=== PATIENT | female | born 1980 | race Caucasian/White ===

== ENCOUNTER 2019-09-25 09:26 | Inpatient (IN) | payer OTHER ==
[2019-09-25 09:59] VITALS: BMI 21.2
--- NOTE | 2019-09-25 11:12 | HP ---
COWS - Scale Resting Pulse: 2= NM 101-120 Sweatin= Chills/Flushing Restless Observation: 1= Difficult to Sit Still Pupil Size: 0= Normal to Room Light Bone or Joint Aches: 1= Mild Discomfort Runny Nose/ Eye Tearin= Runny Nose/Eyes GI Upset > 30mins: 2= Nausea/Diarrhea Tremor Observation: 1= Tremor [place], Not Seen Yawning Observation: 0= None Anxiety or Irritability: 2=Irritable/Anxious Goose Flesh Skin: 0=Smooth Skin COWS Score: 12 CIWA Score Nausea/Vomitin Muscle Tremors: 3 Anxiety: 4-Mod. Anxious/Guarded Agitation: 1-Slight > Activity Paroxysmal Sweats: 2 Orientation: 1-Uncertain about Date Tacttile Disturbances: 2-Mild Itch/Numbness/Burn Auditory Disturbances: 0-None Visual Disturbances: 0-None Headache: 0-None Present CIWA-Ar Total Score: 15 - Admission Criteria OASAS Guidelines: Admission for Medically Managed Detox: Requires at least one of the followin. CIWA greater than 12 2. Seizures within the past 24 hours 3. Delirium tremens within the past 24 hours 4. Hallucinations within the past 24 hours 5. Acute intervention needed for co occurring medical disorder 6. Acute intervention needed for co occurring psychiatric disorder 7. Severe withdrawal that cannot be handled at a lower level of care (continued vomiting, continued diarrhea, abnormal vital signs) requiring intravenous medication and/or fluids 8. Patient presents the following: CIWA greater than 12 Admission Criteria Met: Admission criteria met Admitting History and Physical - Admission Chief Complaint: alcohol and opioid withdrawal sx History of Present Illness: Patient is a 38 yo female with hx of polysubstance abuse: alcohol, intravenous heroin, abelardo, benzio, bup is here for alcohol detox. Patient is currently on MMTP START Recovery on 40 mg dose, reports last attendance was 1.5 weeks ago, dose pending verification. LAND MANAGER reviewed patient on suboxone 12mg qd last rx 08/30, patient reports she does not take the suboxone and wishes to continue with her methadone program. PMHX: Hep C untreated, DM II on insulin therapy, HTN Psych: anxiety and bipolar on latuda Denies SI/HI or hx of suicide attempt Last detox and Rehab [facility] on month ago Others' Prescriptions Patient Name: Winifred Oliva Date: 1980 Address: [address] [place] [id number] Sex: Female Rx Written Rx Dispensed Drug Quantity Days Supply Prescriber Name 09/21/2019 09/21/2019 buprenorphine-naloxone 4-1 mg sl film 30 30 Thierno Dawson MD 09/21/2019 09/21/2019 buprenorphine-naloxone 8-2 mg sl film 60 30 Thierno Dawson MD 08/01/2019 08/01/2019 buprenorphine-naloxone 8-2 mg sl film 60 30 Yanira Robles MD Patient Name: Winifred Oliva Date: 1980 Address: [address] [place] [id number] Sex: Female Rx Written Rx Dispensed Drug Quantity Days Supply Prescriber Name 07/28/2019 07/29/2019 lorazepam 0.5 mg tablet 10 4 Gerhard Miner Lu 07/06/2019 07/06/2019 buprenorphine-naloxone 8-2 mg sl film 60 30 Yanira Robles MD 05/04/2019 05/04/2019 buprenorphine-naloxone 8-2 mg sl film 7 7 Olaf Wahl Cyn History Source: Patient Limitations to Obtaining History: No Limitations - Smoking History Smoking history: Current every day smoker Have you smoked in the past 12 months: Yes - Alcohol/Substance Use Hx Alcohol Use: Yes (reports drinking since 18 yo,1 pint of vodka daily) Admission [facility] Allergies/Adverse Reactions: Allergies Allergy/AdvReac Type Severity Reaction Status Date / Time soy Allergy Severe Difficulty Verified 09/25/19 09:47 Breathing Sulfa (Sulfonamide Allergy Severe Verified 09/25/19 09:47 Antibiotics) Exam Limitations: No Limitations - Ebola screening Have you traveled outside of the country in the last 21 days: No (N) Have you had contact with anyone from an Ebola affected area: No Do you have a fever: No - Review of Systems Constitutional: Chills, Loss of Appetite, Changes in sleep, Other (anxious) EENT: reports: Nose Congestion Respiratory: reports: No Symptoms reported Cardiac: reports: No Symptoms Reported GI: reports: Poor Appetite, Poor Fluid Intake : reports: No Symptoms Reported Musculoskeletal: reports: Back Pain, Joint Pain Integumentary: reports: Other (bilatearl hand swelling) Neuro: reports: No Symptoms reported Endocrine: reports: Increased Thirst Hematology: reports: No Symptoms Reported Psychiatric: reports: Orientated x3, Anxious Other Systems: Reviewed and Negative Patient History - Patient Medical History Hx Anemia: No Hx Asthma: No Hx Chronic Obstructive Pulmonary Disease (COPD): No Hx Cancer: No Hx Cardiac Disorders: No Hx Congestive Heart Failure: No Hx Hypertension: No Hx Hypercholesterolemia: No Hx Pacemaker: No HX Cerebrovascular Accident: No Hx Seizures: No Hx Dementia: No Hx Diabetes: Yes Hx Gastrointestinal Disorders: No Hx Liver Disease: Yes (Hep C untreated ) Hx Genitourinary Disorders: No Hx Sexually Transmitted Disorders: No Hx Renal Disease (ESRD): No Hx Thyroid Disease: No Hx Human Immunodeficiency Virus (HIV): No Hx Hepatitis C: Yes Hx Depression: Yes Hx Suicide Attempt: No Hx Bipolar Disorder: Yes (anxiety ) Hx Schizophrenia: Yes - Patient Surgical History Past Surgical History: Yes Hx Section: Yes (x2) - PPD History Previous Implant?: No Documented Results: Negative w/proof Date: 07/20/16 Results: quanttb gold ne PPD to be Administered?: Yes - Smoking Cessation Smoking history: Current every day smoker Have you smoked in the past 12 months: Yes Aproximately how many cigarettes per day: 10 Cigars Per Day: 0 Hx Chewing Tobacco Use: No Initiated information on smoking cessation: Yes 'Breaking Loose' booklet given: 09/25/19 - Substance & Tx. History Hx Alcohol Use: Yes Hx Substance Use: Yes Substance Use Type: Alcohol, Cocaine, Heroin, Opiates, Tranquilizers Hx Substance Use Treatment: Yes (Last detox and Rehab [facility] on month ago) - Substances abused Alcohol Substance route: Oral Frequency: Daily Amount used: 1 liter of vodka Age of first use: 14 Date of last use: 09/25/19 Heroin Substance route: Injection Frequency: Daily Amount used: 10-15 bags Age of first use: 15 Date of last use: 09/22/19 Crack Substance route: Smoking Frequency: Daily Amount used: $40/day Age of first use: 19 Date of last use: 09/23/19 Admission Physical Exam BHS - Vital Signs Vital Signs: Vital Signs - 24 hr 09/25/19 09:54 Temperature 98.9 F Pulse Rate 120 H Respiratory 16 Rate Blood Pressure 124/83 - Physical General Appearance: Yes: Disheveled, Thin, Sweating, Anxious HEENTM: Yes: EOMI, Hearing grossly Normal, Normal ENT Inspection, Normocephalic , Normal Voice, OKSANA, Pharynx Normal, Tm's normal, Other (poor dentition, cheilithis) Respiratory: Yes: Chest Non-Tender, Lungs Clear, Normal Breath Sounds, No Respiratory Distress, No Accessory Muscle Use Neck: Yes: Within Normal Limits Breast: Yes: Breast Exam Deferred Cardiology: Yes: Regular Rhythm, Tachycardia Abdominal: Yes: Normal Bowel Sounds, Non Tender, Flat, Soft Genitourinary: Yes: Within Normal Limits Back: Yes: Normal Inspection Musculoskeletal: Yes: full range of Motion, Gait Steady, Pelvis Stable Extremities: Yes: Normal Capillary Refill, Normal Inspection, Normal Range of Motion, Non-Tender 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: Yes: 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 NML intact, Fully Oriented, Alert, Motor Strength 5/5, Depressed Affect Integumentary: Yes: Normal Color, Warm, Track Irizarry (bilateral hands mild cellulitis present), Other Lymphatic: Yes: Within Normal Limits - Diagnostic (1) Cellulitis of hand Current Visit: Yes Status: Acute (2) Alcohol dependence with uncomplicated withdrawal Current Visit: Yes Status: Chronic (3) Anxiety Current Visit: Yes Status: Chronic (4) Insulin dependent diabetes mellitus Current Visit: Yes Status: Chronic (5) Nicotine dependence Current Visit: Yes Status: Chronic Qualifiers: Nicotine product type: cigarettes Substance use status: uncomplicated Qualified Code(s): F17.210 - Nicotine dependence, cigarettes, uncomplicated (6) Opioid dependence Current Visit: Yes Status: Chronic Qualifiers: Substance use status: uncomplicated Qualified Code(s): F11.20 - Opioid dependence, uncomplicated Comment: Patient on MMTP 40 mg dose pending verfication (7) Chronic hepatitis C virus infection Current Visit: Yes Status: Chronic Qualifiers: Hepatic coma status: without hepatic coma Qualified Code(s): B18.2 - Chronic viral hepatitis C Comment: Patient wishes to connect to the [facility] for treatment Cleared for Admission [facility] - Detox or Rehab [facility] Level of Care: Medically Managed Detox Regimen/Protocol: Ativan Breathalyzer - Breathalyzer Breathalyzer: 0.233 Urine Drug Screen - Test Device Lot number: [id number] Expiration date: 05/11/21 - Control Is test valid?: Yes - Results Drug screen NEGATIVE: No Urine drug screen results: ABELARDO-Cocaine, MTD-Methadone, BZO-Benzodiazepines, BUP- Suboxone Inpatient Rehab Admission - Rehab Decision to Admit Inpatient rehab admission?: No
[2019-09-25] MEDS ORDERED: NICOTINE POLACRILEX 2 MG GUM BUC PRN (11:15)
[2019-09-25] MEDS ORDERED: MAGNESIUM CITRATE 300 ML BOTTLE PO PRN (11:15)
[2019-09-25] MEDS ORDERED: MAGNESIUM HYDROX 2400MG/30ML ORAL SUSPENSION 30 ML CUP PO PRN (11:15)
[2019-09-25] MEDS ORDERED: BISMUTH SUBSALICYLATE 524 MG/30 ML UD PO PRN (11:15)
[2019-09-25] MEDS ORDERED: IBUPROFEN 400 MG TABLET (FP) PO PRN (11:15)
[2019-09-25] MEDS ORDERED: MAG HYDROX/AL HYDROX/SIMETH 30 ML UNIT-DOSE CUP PO PRN (11:15)
[2019-09-25] MEDS ORDERED: MENTHOL/PHENOL 1 EACH UD MM PRN (11:15)
[2019-09-25] MEDS: LORazepam 1 MG TABLET PO PRN (12:55)
[2019-09-25] MEDS: CEPHALEXIN MONOHYDRATE 250 MG CAPSULE (FP) PO SCH ×2 (12:56→17:19)
[2019-09-25] MEDS: GABAPENTIN 300 MG CAPSULE (FP) PO SCH ×2 (13:31→22:09)
--- NOTE | 2019-09-25 15:08 | PN ---
S Progress Note Note: patient prefers clonidine 0.1 mg po prn for withdrawal sx therapy instead of bid standing order discontinue clonidine0.1mg po bid replaced by clonidine 0.1mg po q12h prn
[2019-09-25] MEDS: BACITRACIN 0.9 GM PACKET TP SCH ×2 (15:33→22:28)
[2019-09-25] MEDS: LORazepam 2 MG TABLET PO SCH ×2 (17:19→22:09)
[2019-09-25] MEDS ORDERED: cloNIDine HCL 0.1 MG TABLET PO SCH (22:00)
[2019-09-25] MEDS: THIAMINE HCL 100 MG TABLET (FP) PO SCH (22:08)
[2019-09-25] MEDS: INSULIN (LEVEMIR) 100 UNITS/ML UNITS SQ SCH (22:09)
[2019-09-26] MEDS: CEPHALEXIN MONOHYDRATE 250 MG CAPSULE (FP) PO SCH ×4 (00:52→17:23)
[2019-09-26] MEDS: GABAPENTIN 300 MG CAPSULE (FP) PO SCH ×3 (06:15→22:00)
[2019-09-26] MEDS: LORazepam 2 MG TABLET PO SCH ×4 (06:15→22:01)
[2019-09-26] MEDS: cloNIDine HCL 0.1 MG TABLET PO PRN ×2 (06:18→17:23)
[2019-09-26] MEDS: METHOCARBAMOL 500 MG TABLET PO PRN ×2 (06:26→12:42)
[2019-09-26] MEDS: PRENATAL VITAMINS W/ FOLIC ACID TABLET (FP) PO SCH (10:59)
[2019-09-26 11:00] LABS: HEMATOCRIT 29.9 % (32.4-45.2); HEMOGLOBIN 9.9 GM/dL (10.7-15.3); MCH 29.4 pg (25.7-33.7); MEAN CELL VOLUME 89.2 fl (80-96); MEAN PLT VOLUME 10.1 fl (7.5-11.1); PLATELET COUNT 168 K/MM3 (134-434); RBC 3.35 M/mm3 (3.60-5.2); RDW 20.3 % (11.6-15.6); WHITE BLOOD COUNT 5.2 K/mm3 (4.0-10.0)
[2019-09-26] MEDS: LORazepam 1 MG TABLET PO PRN (11:04)
[2019-09-26] MEDS ORDERED: METHADONE HCL 10 MG TABLET PO ONE ×3 (11:16→16:15)
[2019-09-26] MEDS ORDERED: BUPRENORPHINE/NALOXONE 8 MG/2 MG FILM PACKET SL ONE (11:21)
--- NOTE | 2019-09-26 11:25 | PN ---
S CIWA - CIWA Score Nausea/Vomitin-Mild Nausea/No Vomiting Muscle Tremors: 3 Anxiety: 3 Agitation: 1-Slight > Activity Paroxysmal Sweats: 2 Orientation: 1-Uncertain about Date Tacttile Disturbances: 1-Very Mild Itch/Numbness Auditory Disturbances: 0-None Visual Disturbances: 0-None Headache: 2-Mild CIWA-Ar Total Score: 14 BHS Progress Note (SOAP) Subjective: received methadone verification that last methadone 09/13/19 of 40mg according to istop patient received 30 days of suboxone 8-2mg po bid and 4-1mg po daily on 09/21/19 begin suboxone maintenance dosage of 8-2mg sl bid + 4-1mg sl od patient reports that suboxone does not do well with her she took one or two of suboxone and sold rest of the suboxone patient states that she prefers methadone program and did well with methadone 80mg by history patient currently taking methadone 40mg due to last dose begin methadone 30mg today and 40mg thereafter continue monitoring 38 years old female admitted on 09/25/19 for alcohol withdrawal sx management treating with ativan detox regimen c/o muscle spasm roboxine prn c/o headache tylenal 650mg po x 1 c/o lower back pain lidociaine patch Objective: 09/26/19 12:10 Vital Signs Temperature 98.2 F 09/26/19 09:23 Pulse Rate 104 H 09/26/19 09:23 Respiratory Rate 18 09/26/19 09:23 Blood Pressure 86/52 L 09/26/19 09:23 O2 Sat by Pulse Oximetry (%) Laboratory Last Values WBC 5.2 K/mm3 (4.0-10.0) 09/26/19 08:15 RBC 3.35 M/mm3 (3.60-5.2) L 09/26/19 08:15 Hgb 9.9 GM/dL (10.7-15.3) L 09/26/19 08:15 Hct 29.9 % (32.4-45.2) L 09/26/19 08:15 MCV 89.2 fl (80-96) 09/26/19 08:15 MCH 29.4 pg (25.7-33.7) 09/26/19 08:15 MCHC 33.0 g/dl (32.0-36.0) 09/26/19 08:15 RDW 20.3 % (11.6-15.6) H 09/26/19 08:15 Plt Count 168 K/MM3 (134-434) D 09/26/19 08:15 MPV 10.1 fl (7.5-11.1) 09/26/19 08:15 Sodium 135 mmol/L (136-145) L 09/26/19 08:15 Potassium 3.5 mmol/L (3.5-5.1) 09/26/19 08:15 Chloride 94 mmol/L (98-107) L 09/26/19 08:15 Carbon Dioxide 28 mmol/L (21-32) 09/26/19 08:15 Anion Gap 13 MMOL/L (8-16) 09/26/19 08:15 BUN 12.6 mg/dL (7-18) 09/26/19 08:15 Creatinine 1.2 mg/dL (0.55-1.3) 09/26/19 08:15 Est GFR (CKD-EPI)AfAm 66.86 09/26/19 08:15 Est GFR (CKD-EPI)NonAf 57.69 09/26/19 08:15 POC Glucometer 124 UNITS (80-120) 09/26/19 06:17 Random Glucose 201 mg/dL (74-106) H 09/26/19 08:15 Calcium 8.5 mg/dL (8.5-10.1) 09/26/19 08:15 Total Bilirubin 0.4 mg/dL (0.2-1) 09/26/19 08:15 AST 30 U/L (15-37) 09/26/19 08:15 ALT 22 U/L (13-61) 09/26/19 08:15 Alkaline Phosphatase 152 U/L (45-117) H 09/26/19 08:15 Total Protein 7.0 g/dl (6.4-8.2) 09/26/19 08:15 Albumin 3.1 g/dl (3.4-5.0) L 09/26/19 08:15 POC Urine HCG, Qual Negative 09/25/19 10:33 lab noted low hgb and hct = anemia begin ferrous sulfate Assessment: 09/26/19 12:12 alcohol withdrawal sx methadone 30 mg today 40mg tomorrow Plan: ativan regimen
[2019-09-26] MEDS: NICOTINE 14 MG/24 HOURS TOPICAL PATCH TD SCH (11:28)
[2019-09-26 11:40] LABS: ALBUMIN 3.1 g/dl (3.4-5.0); BILIRUBIN,TOTAL 0.4 mg/dL (0.2-1); BLOOD UREA NITROGEN 12.6 mg/dL (7-18); CALCIUM 8.5 mg/dL (8.5-10.1); CREATININE 1.2 mg/dL (0.55-1.3); POTASSIUM 3.5 mmol/L (3.5-5.1)
[2019-09-26] MEDS ORDERED: ACETAMINOPHEN 325 MG TABLET (FP) PO ONE (12:08)
[2019-09-26] MEDS: BACITRACIN 15 GM TUBE TOPICAL OINTMENT TP SCH ×2 (12:38→22:00)
[2019-09-26] MEDS: FERROUS SO4 325 MG TABLET (FP) PO SCH (12:39)
[2019-09-26] MEDS: LIDOCAINE 5% TOPICAL PATCH TP SCH (12:41)
--- NOTE | 2019-09-26 13:42 | CONSULT ---
[facility] Psychiatric Consult - Data Date of interview: 09/26/19 Admission source: [facility] Identifying data: Patient is approached for psychiatric interview. Ms Oliva refused. " Come back tomorrow. I cannot talk now." Nursing staff is made aware.
[2019-09-26] MEDS ORDERED: BUPRENORPHINE/NALOXONE 8 MG/2 MG FILM PACKET SL SCH (14:00)
--- NOTE | 2019-09-26 14:54 | EKG ---
Test Reason : Blood Pressure : / mmHG Vent. Rate : 109 BPM Atrial Rate : 109 BPM P-R Int : 152 ms QRS Dur : 124 ms QT Int : 374 ms P-R-T Axes : 057 102 046 degrees QTc Int : 503 ms SINUS TACHYCARDIA POSSIBLE LEFT ATRIAL ENLARGEMENT RIGHT BUNDLE BRANCH BLOCK ABNORMAL ECG NO PREVIOUS ECGS AVAILABLE Confirmed by KARON GUERRERO MD ([id number]) on 09/26/2019 2:53:55 PM Referred By: Confirmed By:KARON GUERRERO MD
[2019-09-26] MEDS: hydrOXYzine PAMOATE 25 MG CAPSULE (FP) PO PRN ×2 (17:24→22:04)
[2019-09-26] MEDS ORDERED: BUPRENORPHINE/NALOXONE 4 MG/1 MG FILM PACKET SL SCH (22:00)
[2019-09-26] MEDS: THIAMINE HCL 100 MG TABLET (FP) PO SCH (22:02)
[2019-09-26] MEDS: LIDOCAINE PATCH REMOVAL MC SCH (22:02)
[2019-09-26] MEDS: INSULIN (LEVEMIR) 100 UNITS/ML UNITS SQ SCH (22:06)
[2019-09-27] MEDS: CEPHALEXIN MONOHYDRATE 250 MG CAPSULE (FP) PO SCH ×5 (00:15→23:48)
[2019-09-27] MEDS: LORazepam 1 MG TABLET PO PRN ×4 (01:39→19:34)
[2019-09-27] MEDS: cloNIDine HCL 0.1 MG TABLET PO PRN ×3 (01:39→19:34)
[2019-09-27] MEDS: LORazepam 1 MG TABLET PO SCH ×4 (05:47→22:03)
[2019-09-27] MEDS: METHADONE HCL 40 MG DISPERSABLE TABLET PO SCH (05:47)
[2019-09-27] MEDS: GABAPENTIN 300 MG CAPSULE (FP) PO SCH ×3 (05:47→22:03)
[2019-09-27] MEDS ORDERED: METHADONE HCL 10 MG TABLET PO SCH (06:00)
[2019-09-27] MEDS: BACITRACIN 15 GM TUBE TOPICAL OINTMENT TP SCH ×2 (10:45→22:03)
[2019-09-27] MEDS: PRENATAL VITAMINS W/ FOLIC ACID TABLET (FP) PO SCH (10:45)
[2019-09-27] MEDS: FERROUS SO4 325 MG TABLET (FP) PO SCH (10:45)
[2019-09-27] MEDS: NICOTINE 14 MG/24 HOURS TOPICAL PATCH TD SCH (10:45)
[2019-09-27] MEDS: LIDOCAINE 5% TOPICAL PATCH TP SCH (10:45)
[2019-09-27] MEDS: METHOCARBAMOL 500 MG TABLET PO PRN ×2 (10:46→22:05)
[2019-09-27] MEDS: BENZOCAINE 28 GM HEMORRHOIDAL OINTMENT PR PRN (12:30)
--- NOTE | 2019-09-27 12:33 | PN ---
[facility] CIWA - CIWA Score Nausea/Vomitin-Mild Nausea/No Vomiting Muscle Tremors: 2 Anxiety: 4-Mod. Anxious/Guarded Agitation: 3 Paroxysmal Sweats: 2 Orientation: 0-Oriented Tacttile Disturbances: 0-None Auditory Disturbances: 0-None Visual Disturbances: 0-None Headache: 0-None Present CIWA-Ar Total Score: 12 S Progress Note (SOAP) Subjective: 38 years old female admitted on 09/25/19 for alcohol withdrawal sx management treating with ativan detox regimen anxious tremor c/o long history of hemorrhoid hemorrhoid cream qid metamucil Objective: 09/27/19 12:34 Vital Signs Temperature 96.1 F L 09/27/19 09:06 Pulse Rate 120 H 09/27/19 09:06 Respiratory Rate 18 09/27/19 09:06 Blood Pressure 109/79 09/27/19 09:06 O2 Sat by Pulse Oximetry (%) Laboratory Last Values WBC 5.2 K/mm3 (4.0-10.0) 09/26/19 08:15 RBC 3.35 M/mm3 (3.60-5.2) L 09/26/19 08:15 Hgb 9.9 GM/dL (10.7-15.3) L 09/26/19 08:15 Hct 29.9 % (32.4-45.2) L 09/26/19 08:15 MCV 89.2 fl (80-96) 09/26/19 08:15 MCH 29.4 pg (25.7-33.7) 09/26/19 08:15 MCHC 33.0 g/dl (32.0-36.0) 09/26/19 08:15 RDW 20.3 % (11.6-15.6) H 09/26/19 08:15 Plt Count 168 K/MM3 (134-434) D 09/26/19 08:15 MPV 10.1 fl (7.5-11.1) 09/26/19 08:15 Sodium 135 mmol/L (136-145) L 09/26/19 08:15 Potassium 3.5 mmol/L (3.5-5.1) 09/26/19 08:15 Chloride 94 mmol/L (98-107) L 09/26/19 08:15 Carbon Dioxide 28 mmol/L (21-32) 09/26/19 08:15 Anion Gap 13 MMOL/L (8-16) 09/26/19 08:15 BUN 12.6 mg/dL (7-18) 09/26/19 08:15 Creatinine 1.2 mg/dL (0.55-1.3) 09/26/19 08:15 Est GFR (CKD-EPI)AfAm 66.86 09/26/19 08:15 Est GFR (CKD-EPI)NonAf 57.69 09/26/19 08:15 POC Glucometer 155 UNITS (80-120) 09/27/19 05:51 Random Glucose 201 mg/dL (74-106) H 09/26/19 08:15 Calcium 8.5 mg/dL (8.5-10.1) 09/26/19 08:15 Total Bilirubin 0.4 mg/dL (0.2-1) 09/26/19 08:15 AST 30 U/L (15-37) 09/26/19 08:15 ALT 22 U/L (13-61) 09/26/19 08:15 Alkaline Phosphatase 152 U/L (45-117) H 09/26/19 08:15 Total Protein 7.0 g/dl (6.4-8.2) 09/26/19 08:15 Albumin 3.1 g/dl (3.4-5.0) L 09/26/19 08:15 POC Urine HCG, Qual Negative 09/25/19 10:33 RPR Titer Nonreactive (NONREACTIVE) 09/26/19 08:15 lab noted continue ferrous sulfate low hgb and hct 09/27/19 12:35 Assessment: 09/27/19 12:36 alcohol withdrawal Plan: ativan regimen
[2019-09-27] MEDS: PSYLLIUM 5.85 GM PACKET PO SCH (15:39)
[2019-09-27] MEDS: INSULIN (LEVEMIR) 100 UNITS/ML UNITS SQ SCH (22:03)
[2019-09-27] MEDS: MELATONIN 5 MG TABLETS PO PRN (22:04)
[2019-09-27] MEDS: THIAMINE HCL 100 MG TABLET (FP) PO SCH (22:04)
[2019-09-27] MEDS: LIDOCAINE PATCH REMOVAL MC SCH (22:05)
[2019-09-27] MEDS: hydrOXYzine PAMOATE 25 MG CAPSULE (FP) PO PRN (22:07)
[2019-09-28] MEDS ORDERED: LORazepam 0.5 MG TABLET PO PRN
[2019-09-28] MEDS: MELATONIN 5 MG TABLETS PO PRN (00:39)
[2019-09-28] MEDS: CEPHALEXIN MONOHYDRATE 250 MG CAPSULE (FP) PO SCH ×3 (05:49→18:03)
[2019-09-28] MEDS: GABAPENTIN 300 MG CAPSULE (FP) PO SCH ×3 (05:49→22:29)
[2019-09-28] MEDS: METHADONE HCL 40 MG DISPERSABLE TABLET PO SCH (05:49)
[2019-09-28] MEDS: LORazepam 0.5 MG TABLET PO SCH ×4 (05:50→22:29)
[2019-09-28] MEDS: METHOCARBAMOL 500 MG TABLET PO PRN ×3 (05:52→18:08)
[2019-09-28] MEDS: cloNIDine HCL 0.1 MG TABLET PO PRN ×2 (05:59→17:38)
[2019-09-28] MEDS ORDERED: INSULIN (NOVOLOG) ASPART 100 UNITS/ML 10ML VIAL SQ ONE (07:04)
--- NOTE | 2019-09-28 07:10 | PN ---
S Progress Note Note: Patient's blood sugar level is B/S 258mg/dl. Patient is asymptomatic Vital Signs Temperature 97.8 F 09/28/19 06:47 Pulse Rate 76 09/28/19 06:47 Respiratory Rate 16 09/28/19 06:47 Blood Pressure 110/71 09/28/19 06:47 O2 Sat by Pulse Oximetry (%) Action; Insulin Novolog 4 units SQ ordered
[2019-09-28] MEDS ORDERED: INSULIN SLIDING SCALE (NOVOLOG) 1 VIAL SQ ONE (07:15)
[2019-09-28] MEDS: LIDOCAINE 5% TOPICAL PATCH TP SCH (10:04)
[2019-09-28] MEDS: PRENATAL VITAMINS W/ FOLIC ACID TABLET (FP) PO SCH (10:04)
[2019-09-28] MEDS: FERROUS SO4 325 MG TABLET (FP) PO SCH (10:04)
[2019-09-28] MEDS: NICOTINE 14 MG/24 HOURS TOPICAL PATCH TD SCH (10:05)
[2019-09-28] MEDS: BACITRACIN 15 GM TUBE TOPICAL OINTMENT TP SCH ×2 (10:05→22:30)
[2019-09-28] MEDS: BENZOCAINE 28 GM HEMORRHOIDAL OINTMENT PR PRN (10:27)
--- NOTE | 2019-09-28 13:22 | PN ---
S CIWA - CIWA Score Nausea/Vomitin-No Nausea/No Vomiting Muscle Tremors: 2 Anxiety: 2 Agitation: 2 Paroxysmal Sweats: 1-Minimal Palms Moist Orientation: 0-Oriented Tacttile Disturbances: 0-None Auditory Disturbances: 0-None Visual Disturbances: 0-None Headache: 0-None Present CIWA-Ar Total Score: 7 BHS Progress Note (SOAP) Subjective: 38 years old female admitted on 09/25/19 for alcohol withdrawal sx management treating with ativan detox regimen feeling better today patient prefers to returning to her methadone program for behavior and psychosocial therapies Objective: 09/28/19 13:23 Vital Signs Temperature 97 F L 09/28/19 09:23 Pulse Rate 91 H 09/28/19 10:41 Respiratory Rate 18 09/28/19 09:23 Blood Pressure 88/53 L 09/28/19 10:41 O2 Sat by Pulse Oximetry (%) Laboratory Last Values WBC 5.2 K/mm3 (4.0-10.0) 09/26/19 08:15 RBC 3.35 M/mm3 (3.60-5.2) L 09/26/19 08:15 Hgb 9.9 GM/dL (10.7-15.3) L 09/26/19 08:15 Hct 29.9 % (32.4-45.2) L 09/26/19 08:15 MCV 89.2 fl (80-96) 09/26/19 08:15 MCH 29.4 pg (25.7-33.7) 09/26/19 08:15 MCHC 33.0 g/dl (32.0-36.0) 09/26/19 08:15 RDW 20.3 % (11.6-15.6) H 09/26/19 08:15 Plt Count 168 K/MM3 (134-434) D 09/26/19 08:15 MPV 10.1 fl (7.5-11.1) 09/26/19 08:15 Sodium 135 mmol/L (136-145) L 09/26/19 08:15 Potassium 3.5 mmol/L (3.5-5.1) 09/26/19 08:15 Chloride 94 mmol/L (98-107) L 09/26/19 08:15 Carbon Dioxide 28 mmol/L (21-32) 09/26/19 08:15 Anion Gap 13 MMOL/L (8-16) 09/26/19 08:15 BUN 12.6 mg/dL (7-18) 09/26/19 08:15 Creatinine 1.2 mg/dL (0.55-1.3) 09/26/19 08:15 Est GFR (CKD-EPI)AfAm 66.86 09/26/19 08:15 Est GFR (CKD-EPI)NonAf 57.69 09/26/19 08:15 POC Glucometer 173 UNITS (80-120) 09/28/19 11:37 Random Glucose 201 mg/dL (74-106) H 09/26/19 08:15 Calcium 8.5 mg/dL (8.5-10.1) 09/26/19 08:15 Total Bilirubin 0.4 mg/dL (0.2-1) 09/26/19 08:15 AST 30 U/L (15-37) 09/26/19 08:15 ALT 22 U/L (13-61) 09/26/19 08:15 Alkaline Phosphatase 152 U/L (45-117) H 09/26/19 08:15 Total Protein 7.0 g/dl (6.4-8.2) 09/26/19 08:15 Albumin 3.1 g/dl (3.4-5.0) L 09/26/19 08:15 POC Urine HCG, Qual Negative 09/25/19 10:33 RPR Titer Nonreactive (NONREACTIVE) 09/26/19 08:15 lab noted long history of diabetes Assessment: 09/28/19 13:24 alcohol withdrawal discuss alcohol induced glucose imbalance Plan: ativan regimen
[2019-09-28] MEDS: hydrOXYzine PAMOATE 25 MG CAPSULE (FP) PO PRN (13:59)
[2019-09-28] MEDS: PSYLLIUM 5.85 GM PACKET PO SCH (14:06)
[2019-09-28] MEDS: THIAMINE HCL 100 MG TABLET (FP) PO SCH (22:29)
[2019-09-28] MEDS: LIDOCAINE PATCH REMOVAL MC SCH (22:30)
[2019-09-28] MEDS: INSULIN (LEVEMIR) 100 UNITS/ML UNITS SQ SCH (22:32)
[2019-09-29] MEDS: CEPHALEXIN MONOHYDRATE 250 MG CAPSULE (FP) PO SCH ×3 (00:20→11:00)
[2019-09-29] MEDS ORDERED: LORazepam 0.5 MG TABLET PO ONE (05:00)
[2019-09-29] MEDS: METHADONE HCL 40 MG DISPERSABLE TABLET PO SCH (06:01)
[2019-09-29] MEDS: GABAPENTIN 300 MG CAPSULE (FP) PO SCH (06:02)
[2019-09-29] MEDS: cloNIDine HCL 0.1 MG TABLET PO PRN (06:03)
[2019-09-29 06:44] VITALS: TEMP 98.4
[2019-09-29] MEDS: METHOCARBAMOL 500 MG TABLET PO PRN (09:18)
[2019-09-29] MEDS: hydrOXYzine PAMOATE 25 MG CAPSULE (FP) PO PRN (09:19)
[2019-09-29] MEDS: PRENATAL VITAMINS W/ FOLIC ACID TABLET (FP) PO SCH (09:19)
[2019-09-29] MEDS: FERROUS SO4 325 MG TABLET (FP) PO SCH (09:19)
[2019-09-29] MEDS: BACITRACIN 15 GM TUBE TOPICAL OINTMENT TP SCH (09:20)
[2019-09-29 09:25] VITALS: BP 83/64; PULSE 118
[2019-09-29] MEDS: NICOTINE 14 MG/24 HOURS TOPICAL PATCH TD SCH (09:25)
[2019-09-29] MEDS: LIDOCAINE 5% TOPICAL PATCH TP SCH (11:01)
--- NOTE | 2019-09-29 14:26 | DS ---
[facility] Detox Discharge Summary Admission Date: 09/25/19 Discharge Date: 09/29/19 - History Present History: Alcohol Dependence Additional Comments: 38 years old female admitted on 09/25/19 for alcohol withdrawal sx management treated with ativan detox regimen patient tolerated well alert oriented x 3 respiratory clear lung bilaterally on auscultation extremities full range of motion skin warm and dry Pertinent Past History: patient will continue following up with methadone program for behavior and psychosocial therapies transportation arranged by the counselor from detox facility to residential - Physical Exam Results Vital Signs: Vital Signs Temperature 98.4 F 09/29/19 09:24 Pulse Rate 118 H 09/29/19 09:24 Respiratory Rate 18 09/29/19 09:24 Blood Pressure 83/64 L 09/29/19 09:24 O2 Sat by Pulse Oximetry (%) Pertinent Admission Physical Exam Findings: alcohol withdrawal sx Laboratory Last Values WBC 5.2 K/mm3 (4.0-10.0) 09/26/19 08:15 RBC 3.35 M/mm3 (3.60-5.2) L 09/26/19 08:15 Hgb 9.9 GM/dL (10.7-15.3) L 09/26/19 08:15 Hct 29.9 % (32.4-45.2) L 09/26/19 08:15 MCV 89.2 fl (80-96) 09/26/19 08:15 MCH 29.4 pg (25.7-33.7) 09/26/19 08:15 MCHC 33.0 g/dl (32.0-36.0) 09/26/19 08:15 RDW 20.3 % (11.6-15.6) H 09/26/19 08:15 Plt Count 168 K/MM3 (134-434) D 09/26/19 08:15 MPV 10.1 fl (7.5-11.1) 09/26/19 08:15 Sodium 135 mmol/L (136-145) L 09/26/19 08:15 Potassium 3.5 mmol/L (3.5-5.1) 09/26/19 08:15 Chloride 94 mmol/L (98-107) L 09/26/19 08:15 Carbon Dioxide 28 mmol/L (21-32) 09/26/19 08:15 Anion Gap 13 MMOL/L (8-16) 09/26/19 08:15 BUN 12.6 mg/dL (7-18) 09/26/19 08:15 Creatinine 1.2 mg/dL (0.55-1.3) 09/26/19 08:15 Est GFR (CKD-EPI)AfAm 66.86 09/26/19 08:15 Est GFR (CKD-EPI)NonAf 57.69 09/26/19 08:15 POC Glucometer 124 UNITS (80-120) 09/29/19 06:06 Random Glucose 201 mg/dL (74-106) H 09/26/19 08:15 Calcium 8.5 mg/dL (8.5-10.1) 09/26/19 08:15 Total Bilirubin 0.4 mg/dL (0.2-1) 09/26/19 08:15 AST 30 U/L (15-37) 09/26/19 08:15 ALT 22 U/L (13-61) 09/26/19 08:15 Alkaline Phosphatase 152 U/L (45-117) H 09/26/19 08:15 Total Protein 7.0 g/dl (6.4-8.2) 09/26/19 08:15 Albumin 3.1 g/dl (3.4-5.0) L 09/26/19 08:15 POC Urine HCG, Qual Negative 09/25/19 10:33 RPR Titer Nonreactive (NONREACTIVE) 09/26/19 08:15 lab noted - Treatment Hospital Course: Detox Protocol Followed, Detoxed Safely, Responded well, Discharged Condition Good, Rehab Referral Accepted Patient has Accepted a Rehab Referral to: [facility] - Medication Discharge Medications: Ambulatory Orders Insulin Glargine,Hum.rec.anlog [Lantus (10mL VIAL) -] 10 units SQ HS 07/24/16 Buspirone HCl [Buspar -] 15 mg PO BID #60 tablet 08/14/16 Clonidine HCl 0.1 mg PO BID 09/25/19 Lurasidone HCl [Latuda] 40 mg PO DAILY 09/25/19 Cephalexin Monohydrate [Keflex -] 250 mg PO Q6HPO #7 capsule 09/29/19 Gabapentin [Neurontin -] 300 mg PO TID #14 capsule 09/29/19 - Diagnosis (1) Methadone maintenance therapy patient Status: Chronic (2) Alcohol dependence with uncomplicated withdrawal Status: Acute (3) Insulin dependent diabetes mellitus Status: Chronic (4) Nicotine dependence Status: Acute Qualifiers: Nicotine product type: cigarettes Substance use status: in withdrawal Qualified Code(s): F17.213 - Nicotine dependence, cigarettes, with withdrawal - AMA Did Patient Leave Against Medical Advice: No CIWA Score - CIWA Score Nausea/Vomitin-No Nausea/No Vomiting Muscle Tremors: 1-None Visible, but [place] Anxiety: 1-Mildly Anxious Agitation: 1-Slight > Activity Paroxysmal Sweats: No Perspiration Orientation: 0-Oriented Tacttile Disturbances: 0-None Auditory Disturbances: 0-None Visual Disturbances: 0-None Headache: 0-None Present CIWA-Ar Total Score: 3
== END 2019-09-29 11:06 | disposition home or self-care (01) | DRG 773 ==
LOC: YASAS 09:26 → Y3N 11:31
PROVIDERS: ADMIT Allergy & Immunology; ATTEND Allergy & Immunology
PROC: HZ2ZZZZ Detoxification Services for Substance Abuse Treatment (ICD-10-PCS; principal; 2019-09-25)
DX: F10.230 Alcohol dependence with withdrawal, uncomplicated (principal); F11.20 Opioid dependence, uncomplicated; F17.213 Nicotine dependence, cigarettes, with withdrawal; F41.9 Anxiety disorder, unspecified; E11.9 Type 2 diabetes mellitus without complications; K64.8 Other hemorrhoids; R00.0 Tachycardia, unspecified; L03.114 Cellulitis of left upper limb; L03.113 Cellulitis of right upper limb; B18.2 Chronic viral hepatitis C; Z79.4 Long term (current) use of insulin; Z88.2 Allergy status to sulfonamides; Z91.011 Allergy to milk products
CPT/HCPCS: 36415; 80053; 81025; 82962; 85027; 86593; 93005; 93010; J0735

== ENCOUNTER 2019-10-31 15:08 | Inpatient (IN) | payer OTHER ==
--- NOTE | 2019-10-31 15:27 | PDOC ---
History of Present Illness - General Chief Complaint: Overdose Stated Complaint: Overdose Time Seen by Provider: 10/31/19 15:19 History Source: Patient Exam Limitations: No Limitations - History of Present Illness Initial Comments: 10/31/19 23:46 38 yo F with a hx of heroin abuse and ETOH abuse presents to the emergency department s/p overdose and infection on her hands bilaterally. Per EMS, the patient had overdosed and was given 8 mg of total narcan (4 mg of IN, 4 mg of IM ) with resolution of her respiratory depression. per the patient, she has had worsening infection in her hands over the past few days. The patient endorses using numerous injection sites in the extremities. In addition, the patient used heroin today from a source that is new to her and not from her usual source. The patient had her last alcoholic drink today 10/31/19 23:53 Past History - Past Medical History Allergies/Adverse Reactions: Allergies Allergy/AdvReac Type Severity Reaction Status Date / Time soy Allergy Severe Difficulty Verified 10/31/19 16:47 Breathing Sulfa (Sulfonamide Allergy Severe Verified 10/31/19 16:47 Antibiotics) Home Medications: Ambulatory Orders Insulin Glargine,Hum.rec.anlog [Lantus (10mL VIAL) -] 10 units SQ HS 07/24/16 Buspirone HCl [Buspar -] 15 mg PO BID #60 tablet 08/14/16 Clonidine HCl 0.1 mg PO BID 09/25/19 Lurasidone HCl [Latuda] 40 mg PO DAILY 09/25/19 Cephalexin Monohydrate [Keflex -] 250 mg PO Q6HPO #7 capsule 09/29/19 Gabapentin [Neurontin -] 300 mg PO TID #14 capsule 09/29/19 Anemia: No Asthma: No Cancer: No Cardiac Disorders: No CVA: No COPD: No CHF: No Dementia: No Diabetes: Yes GI Disorders: No Disorders: No HTN: No Hypercholesterolemia: No Kidney Stones: No Liver Disease: Yes (Hep C untreated ) Seizures: No Thyroid Disease: No - Reproductive History PID: No - Psycho Social/Smoking Cessation Hx Smoking History: Current every day smoker Have you smoked in the past 12 months: Yes Number of Cigarettes Smoked Daily: 10 Cigars Per Day: 0 'Breaking Loose' booklet given: 09/25/19 Hx Alcohol Use: Yes Drug/Substance Use Hx: Yes Substance Use Type: Alcohol, Cocaine, Heroin, Opiates, Tranquilizers Hx Substance Use Treatment: Yes (Last detox and Rehab [facility] on month ago) Review of Systems - Review of Systems Able to Perform ROS?: Yes Is the patient limited Spanish proficient: No Constitutional: No: Chills, Diaphoresis, Fever, Weakness HEENTM: No: Eye Pain, Ear Pain, Nose Pain, Throat Pain, Mouth Pain Respiratory: No: Cough, Shortness of Breath, Hemoptysis Cardiac (ROS): No: Chest Pain, Lightheadedness, Palpitations, Chest Tightness ABD/GI: No: Constipated, Diarrhea, Nausea, Rectal Bleeding, Vomiting, Tarry Stools : No: Burning, Dysuria, Hematuria Musculoskeletal: No: Back Pain, Joint Pain, Neck Pain Integumentary: Yes: Erythema (hands bilaterally), Lesions (multiple track lozano throughout the UE b/l). No: Bruising 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: No: Headache, Numbness, Tingling, Tremors Psychiatric: No: Change in Appetite Endocrine: No: Unexplained Weight Loss Hematologic/Lymphatic: No: Anemia *Physical Exam - Physical Exam General Appearance: Yes: Nourished, Appropriately Dressed, Alcohol on Breath, Other (somnolent on examination; awakens to physical stimuli) HEENT: positive: EOMI, [place] (2 mm pupils bilaterally reactive to light), Normal Voice, Pharynx Normal, Hearing Grossly Normal (patient would respond to questions during initial examination when awake). negative: Pale Conjunctivae, Scleral Icterus (R), Scleral Icterus (L), Muffled/Hoarse voice, Pharyngeal Erythema, Tonsillar Exudate, Nasal Congestion, Excessive drooling Neck: positive: Trachea midline, Supple. negative: Tender Respiratory/Chest: positive: Lungs Clear, Normal Breath Sounds. negative: Chest Tender, Respiratory Distress, Accessory Muscle Use Cardiovascular: positive: Regular Rhythm, Regular Rate, S1, S2. negative: Systolic Murmur Lymphatic: negative: Adenopathy Musculoskeletal: positive: Normal Inspection. negative: CVA Tenderness, Vertebral Tenderness Extremity: positive: Normal Capillary Refill, Normal Range of Motion, Tender ( in the dorsal and ventral aspect of the hands bilaterally. hot to the touch). negative: Normal Inspection (erythema noted in the hands bilaterally with extension to the wrists. track lozano noted in multiple locations throughout the UE bilaterally, neck, and LE b/l. no fluctuance noted on these lozano. multiple linear laceration wounds at various stages of healing noted on the UE b/l with most on the ventral portion of the forearm. ) Integumentary: positive: Dry Neurologic: positive: Fully Oriented, Alert, Motor Strength 5/5. negative: Normal Mood/Affect (somnolent on examination) ED Treatment Course - LABORATORY CBC & Chemistry Diagram: 10/31/19 16:08 10/31/19 16:08 Medical Decision Making - Medical Decision Making 38 yo F with a hx of heroin abuse and ETOH abuse presents to the emergency department s/p overdose and infection on her hands bilaterally. Initial vitals: Initial Vital Signs Temp Pulse Resp BP Pulse Ox 98.5 F 85 16 134/85 100 10/31/19 15:27 10/31/19 15:27 10/31/19 15:27 10/31/19 15:27 10/31/19 15:27 Work up: patient presents s/p heroin overdose with reactivity after administration of narcan in the field. Per the patientl, she has been having pain and swelling of her hands for the past few days concerning for cellulitic infection. will cover empirically and obtain blood work. Laboratory Tests 10/31/19 10/31/19 10/31/19 15:41 15:41 16:08 WBC RBC Hgb Hct MCV MCH MCHC RDW Plt Count MPV Absolute Neuts (auto) Neutrophils % Lymphocytes % Monocytes % Eosinophils % Basophils % Nucleated RBC % Platelet Estimate Anisocytosis VBG pH POC VBG pCO2 POC VBG pO2 VBG HCO3 VBG O2 Sat ([place]) VBG Base Excess Sodium Potassium Chloride Carbon Dioxide Anion Gap BUN Creatinine Est GFR (CKD-EPI)AfAm Est GFR (CKD-EPI)NonAf Random Glucose Calcium Total Bilirubin AST ALT Alkaline Phosphatase Total Protein Albumin Serum , Qual Negative Salicylates < 1.7 L Acetaminophen Alcohol, Quantitative 300.21883 H 10/31/19 10/31/19 10/31/19 16:08 16:08 16:08 WBC 6.4 RBC 4.01 Hgb 11.7 Hct 35.3 D MCV 88.1 MCH 29.2 MCHC 33.1 RDW 22.6 H Plt Count 192 MPV 8.5 D Absolute Neuts (auto) 3.9 Neutrophils % 61.4 Lymphocytes % 32.5 Monocytes % 3.6 L Eosinophils % 1.5 Basophils % 1.0 Nucleated RBC % 0 Platelet Estimate Adequate Anisocytosis 2+ VBG pH POC VBG pCO2 POC VBG pO2 VBG HCO3 VBG O2 Sat ([place]) VBG Base Excess Sodium 140 Potassium 5.6 H Chloride 110 H Carbon Dioxide 22 Anion Gap 8 BUN 17.2 Creatinine 0.9 Est GFR (CKD-EPI)AfAm 94.67 Est GFR (CKD-EPI)NonAf 81.68 Random Glucose 186 H Calcium 8.2 L Total Bilirubin 0.1 L AST 20 ALT 16 Alkaline Phosphatase 104 Total Protein 8.4 H Albumin 3.7 Serum , Qual Salicylates Acetaminophen <2.0 Alcohol, Quantitative 10/31/19 16:11 WBC RBC Hgb Hct MCV MCH MCHC RDW Plt Count MPV Absolute Neuts (auto) Neutrophils % Lymphocytes % Monocytes % Eosinophils % Basophils % Nucleated RBC % Platelet Estimate Anisocytosis VBG pH 7.30 L POC VBG pCO2 48.3 POC VBG pO2 53.8 H VBG HCO3 23.5 VBG O2 Sat ([place]ry) 79.1 VBG Base Excess -2.5 L Sodium Potassium Chloride Carbon Dioxide Anion Gap BUN Creatinine Est GFR (CKD-EPI)AfAm Est GFR (CKD-EPI)NonAf Random Glucose Calcium Total Bilirubin AST ALT Alkaline Phosphatase Total Protein Albumin Serum , Qual Salicylates Acetaminophen Alcohol, Quantitative tylenol and aspirin negative alcohol elevated at 300; patient developed tongue fasiculations later in her ED stay consistent with early alcohol withdrawal; will provide 10 mg of valium Patient was endorsed to the hospitalist and accepted for admission. unasyn and vancomycin ordered EKG: RBBB that was seen previous with sinus tachycardia at 103 bpm with QRS at [address] elevations or depressions. Discharge - Discharge Information Problems reviewed: Yes Clinical Impression/Diagnosis: Cellulitis of hand Opioid dependence Qualifiers: Substance use status: uncomplicated Qualified Code(s): F11.20 - Opioid dependence, uncomplicated - Follow up/Referral - Patient Discharge Instructions - Post Discharge Activity
[2019-10-31 16:26] LABS: EOS % 1.5 % (0-4.5); HEMATOCRIT 35.3 % (32.4-45.2); HEMOGLOBIN 11.7 GM/dL (10.7-15.3); LYMPH % 32.5 % (8-40); MCH 29.2 pg (25.7-33.7); MCHC 33.1 g/dl (32.0-36.0); MEAN CELL VOLUME 88.1 fl (80-96); MEAN PLT VOLUME 8.5 fl (7.5-11.1); MONO % 3.6 % (3.8-10.2); NEUT % 61.4 % (42.8-82.8); PLATELET COUNT 192 K/MM3 (134-434); RBC 4.01 M/mm3 (3.60-5.2); RDW 22.6 % (11.6-15.6); WHITE BLOOD COUNT 6.4 K/mm3 (4.0-10.0)
[2019-10-31 16:44] LABS: VENOUS PC02 48.3 mmHg (38-52); VENOUS PH 7.3 (7.31-7.41); VENOUS PO2 53.8 mmHg (28-48)
--- NOTE | 2019-10-31 16:44 | PDOC ---
Attending Attestation - Resident Resident Name: Percy Khalil - ED Attending Attestation I have performed the following: I have examined & evaluated the patient, The case was reviewed & discussed with the resident, I agree w/resident's findings & plan, Exceptions are as noted - HPI HPI: 38 yo F history EtOH abuse, HCV, heroin abuse presents with heroin overdose. She states she used a different dealer than usual, resulting in her presentation. She was given multiple large doses of narcan by EMS en route, however, somnolent on arrival. - Physicial Exam PE: GENERAL: Somnolent, awakens to voice HEAD: No signs of trauma EYES: PERRLA, EOMI, sclera anicteric, conjunctiva clear ENT: Auricles normal inspection, hearing grossly normal, nares patent, oropharynx clear without exudates. Moist mucosa NECK: Normal ROM, supple, no lymphadenopathy, JVD, or masses LUNGS: Breath sounds equal, clear to auscultation bilaterally. No wheezes, and no crackles HEART: Regular rate and rhythm, normal S1 and S2, no murmurs, rubs or gallops ABDOMEN: Soft, nontender, normoactive bowel sounds. No guarding, no rebound. No masses EXTREMITIES: BUE with erythema and swelling to hands and forearms. Remainder of extremities with normal range of motion, no edema. No clubbing or cyanosis. No cords, erythema, or tenderness NEUROLOGICAL: Cranial nerves II through XII grossly intact. Normal speech, normal gait. Motor and sensation intact SKIN: Warm, dry, normal turgor. Multiple linear lacerations to L forearm in various states of healing. +Track lozano to arms and neck. - Medical Decision Making Pt presents s/p overdose on heroin. Initially somnolent, but later was more awake and admitted to abuse of both heroin and alcohol. She subsequently showed signs of alcohol withdrawal. Will offer detox when she is clinically sober.
[2019-10-31] MEDS ORDERED: AMPICILLIN NA/SULBACTAM NA 3 GM in SODIUM CHLORIDE 100 ML IVPB ONE (16:53)
[2019-10-31] MEDS ORDERED: VANCOMYCIN 1 GM in D5W (PRE-DOCKED) 1,000 MG/250 ML IVPB ONE (16:53)
[2019-10-31 16:54] LABS: ALBUMIN 3.7 g/dl (3.4-5.0); BILIRUBIN,TOTAL 0.1 mg/dL (0.2-1); BLOOD UREA NITROGEN 17.2 mg/dL (7-18); CALCIUM 8.2 mg/dL (8.5-10.1); CREATININE 0.9 mg/dL (0.55-1.3); POTASSIUM 5.6 mmol/L (3.5-5.1); TOT PROT 8.4 g/dl (6.4-8.2)
[2019-10-31] MEDS ORDERED: diazePAM CARPU-JECT 10 MG/2 ML DISP.SYRIN IVPUSH ONE ×2 (16:57→20:14)
[2019-10-31] MEDS ORDERED: diazePAM CARPU-JECT 10 MG/2 ML DISP.SYRIN ONE ×3 (17:14→20:26)
[2019-10-31 18:13] LABS: ANISOCYTOSIS 2+; PLATELET ESTIMATE ADEQUATE
[2019-10-31] MEDS ORDERED: VANCOMYCIN 1 GRAM (PRE-DOCKED) 1,000 MG/250 ML BAG IVPB ONE (18:15)
--- NOTE | 2019-10-31 20:30 | HP ---
Admitting History and Physical - Primary Care Physician PCP: Rachel Ramos - Admission History of Present Illness: 38 yo F history EtOH abuse, HCV, heroin abuse presents with heroin overdose. She states she used a different dealer than usual, resulting in her presentation. She was given multiple large doses of narcan by EMS en route, however, somnolent on arrival. doing well - - Smoking History Smoking history: Current every day smoker Have you smoked in the past 12 months: Yes Aproximately how many cigarettes per day: 10 - Alcohol/Substance Use Hx Alcohol Use: Yes Home Medications - Allergies Allergies/Adverse Reactions: Allergies Allergy/AdvReac Type Severity Reaction Status Date / Time soy Allergy Severe Difficulty Verified 10/31/19 16:47 Breathing Sulfa (Sulfonamide Allergy Severe Verified 10/31/19 16:47 Antibiotics) - Home Medications Home Medications: Ambulatory Orders Insulin Glargine,Hum.rec.anlog [Lantus (10mL VIAL) -] 10 units SQ HS 07/24/16 Buspirone HCl [Buspar -] 15 mg PO BID #60 tablet 08/14/16 Clonidine HCl 0.1 mg PO BID 09/25/19 Lurasidone HCl [Latuda] 40 mg PO DAILY 09/25/19 Cephalexin Monohydrate [Keflex -] 250 mg PO Q6HPO #7 capsule 09/29/19 Gabapentin [Neurontin -] 300 mg PO TID #14 capsule 09/29/19 Physical Examination Vital Signs: Vital Signs Temperature 98.5 F 10/31/19 15:27 Pulse Rate 108 H 10/31/19 16:46 Respiratory Rate 20 10/31/19 16:46 Blood Pressure 130/99 10/31/19 16:46 O2 Sat by Pulse Oximetry (%) 99 10/31/19 16:46 Constitutional: Yes: Anxious HENT: Yes: Atraumatic Neck: Yes: Supple Cardiovascular: Yes: Regular Rate and Rhythm Respiratory: Yes: CTA Bilaterally Gastrointestinal: Yes: Normal Bowel Sounds Extremities: Yes: Other (both hands have cellulitis) Edema: Yes 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: Yes: Alert, Oriented Labs: CBC, BMP 10/31/19 16:08 10/31/19 16:08 Problem List - Problems (1) Alcohol dependence with uncomplicated withdrawal Assessment/Plan: detox consult got librium Code(s): F10.230 - ALCOHOL DEPENDENCE WITH WITHDRAWAL, UNCOMPLICATED (2) Cellulitis of hand Assessment/Plan: iv abx id consult Code(s): L03.119 - CELLULITIS OF UNSPECIFIED PART OF LIMB (3) Nicotine dependence Code(s): F17.200 - NICOTINE DEPENDENCE, UNSPECIFIED, UNCOMPLICATED Qualifiers: (4) Bipolar 1 disorder Assessment/Plan: on meds psych consult Code(s): F31.9 - BIPOLAR DISORDER, UNSPECIFIED (5) Chronic hepatitis C virus infection Code(s): B18.2 - CHRONIC VIRAL HEPATITIS C Qualifiers: (6) Crack cocaine use Code(s): F14.90 - COCAINE USE, UNSPECIFIED, UNCOMPLICATED (7) Insulin dependent diabetes mellitus Code(s): E11.9 - TYPE 2 DIABETES MELLITUS WITHOUT COMPLICATIONS; 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 INSULIN Assessment/Plan Laboratory Tests 10/31/19 10/31/19 10/31/19 15:41 15:41 16:08 WBC RBC Hgb Hct MCV MCH MCHC RDW Plt Count MPV Absolute Neuts (auto) Neutrophils % Lymphocytes % Monocytes % Eosinophils % Basophils % Nucleated RBC % Platelet Estimate Anisocytosis VBG pH POC VBG pCO2 POC VBG pO2 VBG HCO3 VBG O2 Sat ([place]) VBG Base Excess Sodium Potassium Chloride Carbon Dioxide Anion Gap BUN Creatinine Est GFR (CKD-EPI)AfAm Est GFR (CKD-EPI)NonAf Random Glucose Calcium Total Bilirubin AST ALT Alkaline Phosphatase Total Protein Albumin Serum , Qual Negative Salicylates < 1.7 L Acetaminophen Alcohol, Quantitative 300.69932 H 10/31/19 10/31/19 10/31/19 16:08 16:08 16:08 WBC 6.4 RBC 4.01 Hgb 11.7 Hct 35.3 D MCV 88.1 MCH 29.2 MCHC 33.1 RDW 22.6 H Plt Count 192 MPV 8.5 D Absolute Neuts (auto) 3.9 Neutrophils % 61.4 Lymphocytes % 32.5 Monocytes % 3.6 L Eosinophils % 1.5 Basophils % 1.0 Nucleated RBC % 0 Platelet Estimate Adequate Anisocytosis 2+ VBG pH POC VBG pCO2 POC VBG pO2 VBG HCO3 VBG O2 Sat ([place]) VBG Base Excess Sodium 140 Potassium 5.6 H Chloride 110 H Carbon Dioxide 22 Anion Gap 8 BUN 17.2 Creatinine 0.9 Est GFR (CKD-EPI)AfAm 94.67 Est GFR (CKD-EPI)NonAf 81.68 Random Glucose 186 H Calcium 8.2 L Total Bilirubin 0.1 L AST 20 ALT 16 Alkaline Phosphatase 104 Total Protein 8.4 H Albumin 3.7 Serum , Qual Salicylates Acetaminophen <2.0 Alcohol, Quantitative 10/31/19 16:11 WBC RBC Hgb Hct MCV MCH MCHC RDW Plt Count MPV Absolute Neuts (auto) Neutrophils % Lymphocytes % Monocytes % Eosinophils % Basophils % Nucleated RBC % Platelet Estimate Anisocytosis VBG pH 7.30 L POC VBG pCO2 48.3 POC VBG pO2 53.8 H VBG HCO3 23.5 VBG O2 Sat ([place]) 79.1 VBG Base Excess -2.5 L Sodium Potassium Chloride Carbon Dioxide Anion Gap BUN Creatinine Est GFR (CKD-EPI)AfAm Est GFR (CKD-EPI)NonAf Random Glucose Calcium Total Bilirubin AST ALT Alkaline Phosphatase Total Protein Albumin Serum , Qual Salicylates Acetaminophen Alcohol, Quantitative Active Medications Generic Name Dose Route Start Last Admin Trade Name Freq PRN Reason Stop Dose Admin Acetaminophen 650 mg 10/31/19 20:35 Tylenol - PO Q6H PRN FEVER Clonidine 0.1 mg 10/31/19 22:00 11/02/19 09:04 Catapres - PO 0.1 mg BID MIKE Administration Gabapentin 300 mg 10/31/19 22:00 11/02/19 13:26 Neurontin - PO 300 mg TID MIKE Administration Heparin Sodium (Porcine) 5,000 unit 10/31/19 22:00 11/02/19 09:08 Heparin - SQ 5,000 unit BID MIKE Administration Sodium Chloride 1,000 mls @ 125 mls/hr 11/01/19 02:15 11/02/19 02:31 Normal Saline - IV Not Given ASDIR MIKE Piperacillin Sod/Tazobactam 50 mls @ 100 mls/hr 11/01/19 15:12 11/02/19 09:03 Sod 3.375 gm/ Dextrose IVPB 100 mls/hr Q8H-IV MIKE Administration Protocol Insulin Aspart 1 vial 10/31/19 22:00 11/02/19 16:26 Novolog Vial Sliding Scale - SQ 6 unit ACHS MIKE Administration Protocol Ketorolac Tromethamine 30 mg 11/02/19 16:46 Toradol Injection - IVPUSH 11/07/19 16:45 Q6H PRN PAIN LEVEL 6-10 Lorazepam 0.5 mg 11/03/19 05:00 Ativan - PO 11/03/19 23:01 Q6H MIKE Lorazepam 0.5 mg 11/03/19 00:00 Ativan - PO 11/04/19 00:00 Q4H PRN Symptoms of Withdrawal Lorazepam 0.5 mg 11/04/19 05:00 Ativan - PO 11/04/19 05:01 ONCE ONE Lorazepam 1 mg 11/02/19 05:00 11/02/19 16:23 Ativan - PO 11/02/19 23:01 1 mg 0500,1100,1700,2300 MIKE Administration Lorazepam 1 mg 11/01/19 00:52 11/02/19 13:26 Ativan - PO 11/03/19 00:00 1 mg Q4H PRN Administration Symptoms of Withdrawal Quetiapine Fumarate 25 mg 11/02/19 22:00 Seroquel - PO BID MIKE
[2019-10-31] MEDS ORDERED: ACETAMINOPHEN 325 MG TABLET (FP) PO PRN (20:35)
[2019-10-31] MEDS ORDERED: chlordiazePOXIDE HCL 25 MG CAPSULE PO ONE (22:21)
[2019-10-31] MEDS ORDERED: LORazepam 2 MG/ML SDV VIAL ONE (22:26)
[2019-10-31] MEDS ORDERED: chlordiazePOXIDE HCL 25 MG CAPSULE ONE (22:26)
[2019-11-01] MEDS ORDERED: chlordiazePOXIDE HCL 10 MG CAPSULE PO PRN (00:10)
[2019-11-01] MEDS: busPIRone HCL 5 MG TABLET PO SCH ×3 (00:13→21:59)
[2019-11-01] MEDS: cloNIDine HCL 0.1 MG TABLET PO SCH ×3 (00:13→21:02)
[2019-11-01] MEDS: GABAPENTIN 300 MG CAPSULE PO SCH ×4 (00:14→21:02)
--- NOTE | 2019-11-01 00:26 | HOSP ---
Subjective - Review of Symptoms Events since last encounter: Hospitalist Encounter Was notified by the RN in the ED that the patient of Dr. Ramos approached the nursing station very agitated and combative. Orders needed for Alcohol/Opioid Detox. Patient at bedside alert, wake and oriented, reports generalized pain, nausea. Patient appears anxious, diaphoretic. CIWA-r 9 PE performed see EMR Assessment Patient admitted for Alcohol/Heroin Overdose, Bilateral Hand Cellulitis Patient admits to drinking a bottle of Vodka daily and Heroin daily. Plan: Heroin/Alcohol Detox orders O2 General: Yes: Other (restless and anxious, diaphoretic) Physical Examination Vital Signs: Vital Signs Temperature 98.5 F 10/31/19 15:27 Pulse Rate 129 H 10/31/19 22:23 Respiratory Rate 10/31/19 22:23 Blood Pressure 133/86 10/31/19 22:23 O2 Sat by Pulse Oximetry (%) 100 10/31/19 22:23 Constitutional: Yes: Anxious, Moderate Distress, Thin Eyes: Yes: WNL, Conjunctiva Clear, EOM Intact, PERRL HENT: Yes: WNL, Atraumatic, Normocephalic Neck: Yes: WNL, Supple, Trachea Midline Cardiovascular: Yes: Tachycardia, S1, S2 Respiratory: Yes: WNL, Regular, CTA Bilaterally Gastrointestinal: Yes: Normal Bowel Sounds, Soft, Tenderness ...Rectal Exam: Yes: Deferred Renal/: Yes: WNL Breast(s): Yes: WNL Musculoskeletal: Yes: Muscle Pain Extremities: Yes: Erythema Edema: No Peripheral Pulses WNL: Yes Integumentary: Yes: Erythema (b/l hands) 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: Yes: WNL, Alert, Oriented, Cran Nerves II-XII Intact ...Motor Strength: WNL Psychiatric: Yes: WNL, Alert, Oriented Labs: CBC, BMP 10/31/19 16:08 10/31/19 16:08 Hospitalist Encounter Outcome: Patient's HR remains in 130's after medication Will require upgrade to Telemetry, for closer monitoring Critical Care Total Critical Care Time (in minutes): 40 Critical Care Statement: The care of this patient involved high complexity decision making to prevent further life threatening deterioration of the patient 's condition and/or to evaluate & treat vital organ system(s) failure or risk of failure.
[2019-11-01] MEDS ORDERED: HEPARIN NA (PORCINE) 5,000 UNITS/ML 1ML VIAL ONE (00:34)
[2019-11-01] MEDS: INSULIN SLIDING SCALE (NOVOLOG) 1 VIAL SQ SCH ×5 (00:50→21:02)
[2019-11-01] MEDS: HEPARIN NA (PORCINE) 5,000 UNITS/ML 1ML VIAL SQ SCH ×3 (00:50→21:02)
[2019-11-01] MEDS ORDERED: LORazepam 2 MG/ML SDV VIAL ONE (00:51)
[2019-11-01] MEDS ORDERED: ONDANSETRON 4 MG/2 ML VIAL IVPUSH ONE (01:47)
[2019-11-01] MEDS: SODIUM CHLORIDE 1,000 ML IV SCH (02:20)
[2019-11-01] MEDS ORDERED: chlordiazePOXIDE HCL 25 MG CAPSULE PO SCH (05:00)
[2019-11-01] MEDS ORDERED: GABAPENTIN 100 MG CAPSULE ONE (06:33)
[2019-11-01] MEDS ORDERED: LORazepam 0.5 MG TABLET ONE ×5 (06:33→20:03)
[2019-11-01] MEDS: LORazepam 2 MG TABLET PO SCH ×4 (06:51→23:05)
[2019-11-01] MEDS: LURASIDONE HCL 40 MG TABLET PO SCH (09:36)
[2019-11-01] MEDS: LORazepam 1 MG TABLET PO PRN ×2 (09:46→20:07)
--- NOTE | 2019-11-01 11:30 | EKG ---
Test Reason : Blood Pressure : / mmHG Vent. Rate : 103 BPM Atrial Rate : 103 BPM P-R Int : 152 ms QRS Dur : 114 ms QT Int : 370 ms P-R-T Axes : 056 093 057 degrees QTc Int : 484 ms SINUS TACHYCARDIA RIGHT BUNDLE BRANCH BLOCK ABNORMAL ECG WHEN COMPARED WITH ECG OF 25-SEP-2019 12:26, NO SIGNIFICANT CHANGE WAS FOUND Confirmed by Edin Hayden MD ([id number]) on 11/01/2019 11:29:45 AM Referred By: Confirmed By:Edin Hayden MD
--- NOTE | 2019-11-01 13:23 | CON.ID ---
Consult - Alcohol/Substance Use Hx Alcohol Use: Yes - Smoking History Smoking history: Current every day smoker Have you smoked in the past 12 months: Yes Aproximately how many cigarettes per day: 10 Home Medications - Allergies Allergies/Adverse Reactions: Allergies Allergy/AdvReac Type Severity Reaction Status Date / Time soy Allergy Severe Difficulty Verified 10/31/19 16:47 Breathing Sulfa (Sulfonamide Allergy Severe Verified 10/31/19 16:47 Antibiotics) - Home Medications Home Medications: Ambulatory Orders Insulin Glargine,Hum.rec.anlog [Lantus (10mL VIAL) -] 10 units SQ HS 07/24/16 Buspirone HCl [Buspar -] 15 mg PO BID #60 tablet 08/14/16 Clonidine HCl 0.1 mg PO BID 09/25/19 Lurasidone HCl [Latuda] 40 mg PO DAILY 09/25/19 Cephalexin Monohydrate [Keflex -] 250 mg PO Q6HPO #7 capsule 09/29/19 Gabapentin [Neurontin -] 300 mg PO TID #14 capsule 09/29/19 Physical Exam Vital Signs: Vital Signs Temperature 98.0 F 11/01/19 08:00 Pulse Rate 103 H 11/01/19 08:00 Respiratory Rate 18 11/01/19 08:00 Blood Pressure 127/83 11/01/19 08:00 O2 Sat by Pulse Oximetry (%) 97 11/01/19 08:00 Labs: CBC, BMP 10/31/19 16:08 10/31/19 16:08
[2019-11-01] MEDS ORDERED: PIPERACILLIN/TAZOB 3.375 GM 3.375 GM in DEXTROSE 5%-WATER - 50 ML IVPB ONE (14:32)
[2019-11-01] MEDS ORDERED: PIPERACILLIN/TAZOB 3.375 GM 3.375 GM/50 ML BAG IVPB ONE (14:39)
--- NOTE | 2019-11-01 17:11 | PN ---
Progress Note, Physician - Current Medication List Current Medications: Active Medications Acetaminophen (Tylenol -) 650 mg PO Q6H PRN PRN Reason: FEVER Buspirone HCl (Buspar -) 15 mg PO BID [facility] Last Admin: 11/01/19 09:35 Dose: 15 mg Clonidine (Catapres -) 0.1 mg PO BID [facility] Last Admin: 11/01/19 09:35 Dose: 0.1 mg Gabapentin (Neurontin -) 300 mg PO TID [facility] Last Admin: 11/01/19 13:21 Dose: 300 mg Heparin Sodium (Porcine) (Heparin -) 5,000 unit SQ BID [facility] Last Admin: 11/01/19 09:35 Dose: 5,000 unit Sodium Chloride (Normal Saline -) 1,000 mls @ 125 mls/hr IV ASDIR [facility] Last Admin: 11/01/19 02:20 Dose: 125 mls/hr Piperacillin Sod/Tazobactam (Sod 3.375 gm/ Dextrose) 50 mls @ 100 mls/hr IVPB Q8H-IV [facility]; Protocol Insulin Aspart (Novolog Vial Sliding Scale -) 1 vial SQ ACHS [facility]; Protocol Last Admin: 11/01/19 11:51 Dose: 2 unit Lorazepam (Ativan) 2 mg PO 0500,1100,1700,2300 [facility] Stop: 11/01/19 23:01 Last Admin: 11/01/19 10:29 Dose: 2 mg Lorazepam (Ativan -) 0.5 mg PO Q6H [facility] Stop: 11/03/19 23:01 Lorazepam (Ativan -) 0.5 mg PO Q4H PRN PRN Reason: Symptoms of Withdrawal Stop: 11/04/19 00:00 Lorazepam (Ativan -) 0.5 mg PO ONCE ONE Stop: 11/04/19 05:01 Lorazepam (Ativan -) 1 mg PO 0500,1100,1700,2300 [facility] Stop: 11/02/19 23:01 Lorazepam (Ativan -) 1 mg PO Q4H PRN PRN Reason: Symptoms of Withdrawal Stop: 11/03/19 00:00 Last Admin: 11/01/19 09:46 Dose: 1 mg Lurasidone HCl (Latuda -) 40 mg PO DAILY [facility] Last Admin: 11/01/19 09:36 Dose: 40 mg - Objective Vital Signs: Vital Signs Temperature 98.7 F 11/01/19 14:00 Pulse Rate 106 H 11/01/19 14:00 Respiratory Rate 20 11/01/19 14:00 Blood Pressure 128/94 11/01/19 14:00 O2 Sat by Pulse Oximetry (%) 99 11/01/19 14:00 Constitutional: Yes: Anxious HENT: Yes: Atraumatic Neck: Yes: Supple Cardiovascular: Yes: Regular Rate and Rhythm Respiratory: Yes: CTA Bilaterally Gastrointestinal: Yes: Normal Bowel Sounds Extremities: Yes: Other (cellulitis hands) Edema: Yes Edema: LUE: 1+, RUE: 1+ 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: Yes: Alert, Oriented Labs: CBC, BMP 10/31/19 16:08 10/31/19 16:08 Problem List - Problems (1) Alcohol dependence with uncomplicated withdrawal Assessment/Plan: detox consult got librium Code(s): F10.230 - ALCOHOL DEPENDENCE WITH WITHDRAWAL, UNCOMPLICATED (2) Cellulitis of hand Assessment/Plan: iv abx id consult Code(s): L03.119 - CELLULITIS OF UNSPECIFIED PART OF LIMB (3) Nicotine dependence Code(s): F17.200 - NICOTINE DEPENDENCE, UNSPECIFIED, UNCOMPLICATED Qualifiers: (4) Bipolar 1 disorder Code(s): F31.9 - BIPOLAR DISORDER, UNSPECIFIED (5) Chronic hepatitis C virus infection Code(s): B18.2 - CHRONIC VIRAL HEPATITIS C Qualifiers: (6) Crack cocaine use Code(s): F14.90 - COCAINE USE, UNSPECIFIED, UNCOMPLICATED (7) Insulin dependent diabetes mellitus Code(s): E11.9 - TYPE 2 DIABETES MELLITUS WITHOUT COMPLICATIONS; 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
[2019-11-01] MEDS: PIPERACILLIN/TAZOB 3.375 GM 3.375 GM in DEXTROSE 5%-WATER - 50 ML IVPB SCH (18:26)
[2019-11-01 20:51] VITALS: BMI 22.6
[2019-11-01] MEDS ORDERED: PT OWN MED DRAWER 7, Y5N ONE (20:57)
[2019-11-01] MEDS ORDERED: LORazepam 1 MG TABLET PO ONE (23:15)
[2019-11-01] MEDS ORDERED: KETOROLAC TROMETHAMINE 30 MG/1 ML VIAL IVPUSH ONE (23:35)
[2019-11-02] MEDS ORDERED: PIPERACILLIN/TAZOBACTAM 3.375 GM VIAL IVPB ONE ×3 (00:49→16:56)
[2019-11-02] MEDS ORDERED: DEXTROSE 5%-WATER - 50 ML IVPB ONE ×3 (00:49→16:56)
[2019-11-02] MEDS: PIPERACILLIN/TAZOB 3.375 GM 3.375 GM in DEXTROSE 5%-WATER - 50 ML IVPB SCH ×3 (01:01→17:02)
[2019-11-02] MEDS: SODIUM CHLORIDE 1,000 ML IV SCH ×2 (02:31→17:03)
[2019-11-02] MEDS: LORazepam 1 MG TABLET PO PRN ×4 (02:31→18:00)
[2019-11-02] MEDS ORDERED: diphenhydrAMINE HCL 25 MG CAPSULE (FP) PO ONE (03:10)
[2019-11-02] MEDS ORDERED: chlordiazePOXIDE 5 MG CAPSULE PO SCH (05:00)
[2019-11-02] MEDS: LORazepam 1 MG TABLET PO SCH ×4 (05:11→22:43)
[2019-11-02] MEDS: GABAPENTIN 300 MG CAPSULE PO SCH ×3 (05:11→22:43)
[2019-11-02] MEDS: INSULIN SLIDING SCALE (NOVOLOG) 1 VIAL SQ SCH ×4 (06:24→22:46)
[2019-11-02] MEDS ORDERED: PT OWN MED DRAWER 7, Y5N ONE (09:00)
[2019-11-02] MEDS: LURASIDONE HCL 40 MG TABLET PO SCH (09:04)
[2019-11-02] MEDS: cloNIDine HCL 0.1 MG TABLET PO SCH ×2 (09:04→22:43)
[2019-11-02] MEDS: HEPARIN NA (PORCINE) 5,000 UNITS/ML 1ML VIAL SQ SCH ×2 (09:08→22:43)
[2019-11-02] MEDS ORDERED: KETOROLAC TROMETHAMINE 30 MG/1 ML VIAL IVPUSH ONE (09:30)
[2019-11-02] MEDS ORDERED: BUSPIRONE HCL 10 MG, BUSPIRONE HCL 5 MG PO SCH (10:00)
[2019-11-02 11:25] LABS: BASO % 0.8 % (0-2.0); EOS % 3.5 % (0-4.5); HEMATOCRIT 29.7 % (32.4-45.2); HEMOGLOBIN 9.8 GM/dL (10.7-15.3); LYMPH % 44.5 % (8-40); MCH 28.9 pg (25.7-33.7); MEAN CELL VOLUME 87.7 fl (80-96); MEAN PLT VOLUME 8.6 fl (7.5-11.1); MONO % 9.4 % (3.8-10.2); NEUT % 41.8 % (42.8-82.8); PLATELET COUNT 147 K/MM3 (134-434); RBC 3.38 M/mm3 (3.60-5.2); WHITE BLOOD COUNT 3.6 K/mm3 (4.0-10.0)
--- NOTE | 2019-11-02 11:35 | PN ---
Progress Note, Physician History of Present Illness: patient c/o of lot of pain blood cx are positve feels scared - Current Medication List Current Medications: Active Medications Acetaminophen (Tylenol -) 650 mg PO Q6H PRN PRN Reason: FEVER Buspirone HCl 10 mg/ Buspirone (HCl 5 mg) 15 mg PO BID [facility] Last Admin: 11/02/19 09:04 Dose: 15 mg Clonidine (Catapres -) 0.1 mg PO BID [facility] Last Admin: 11/02/19 09:04 Dose: 0.1 mg Gabapentin (Neurontin -) 300 mg PO TID [facility] Last Admin: 11/02/19 05:11 Dose: 300 mg Heparin Sodium (Porcine) (Heparin -) 5,000 unit SQ BID [facility] Last Admin: 11/02/19 09:08 Dose: 5,000 unit Sodium Chloride (Normal Saline -) 1,000 mls @ 125 mls/hr IV ASDIR [facility] Last Admin: 11/02/19 02:31 Dose: Not Given Piperacillin Sod/Tazobactam (Sod 3.375 gm/ Dextrose) 50 mls @ 100 mls/hr IVPB Q8H-IV [facility]; Protocol Last Admin: 11/02/19 09:03 Dose: 100 mls/hr Insulin Aspart (Novolog Vial Sliding Scale -) 1 vial SQ ACHS [facility]; Protocol Last Admin: 11/02/19 11:27 Dose: 8 unit Lorazepam (Ativan -) 0.5 mg PO Q6H [facility] Stop: 11/03/19 23:01 Lorazepam (Ativan -) 0.5 mg PO Q4H PRN PRN Reason: Symptoms of Withdrawal Stop: 11/04/19 00:00 Lorazepam (Ativan -) 0.5 mg PO ONCE ONE Stop: 11/04/19 05:01 Lorazepam (Ativan -) 1 mg PO 0500,1100,1700,2300 [facility] Stop: 11/02/19 23:01 Last Admin: 11/02/19 11:25 Dose: 1 mg Lorazepam (Ativan -) 1 mg PO Q4H PRN PRN Reason: Symptoms of Withdrawal Stop: 11/03/19 00:00 Last Admin: 11/02/19 08:54 Dose: 1 mg Lurasidone HCl (Latuda -) 40 mg PO DAILY [facility] Last Admin: 11/02/19 09:04 Dose: 40 mg - Objective Vital Signs: Vital Signs Temperature 97.6 F 11/02/19 09:16 Pulse Rate 92 H 11/02/19 09:16 Respiratory Rate 22 H 11/02/19 09:16 Blood Pressure 122/76 11/02/19 09:16 O2 Sat by Pulse Oximetry (%) 98 11/02/19 09:16 Constitutional: Yes: Calm, Mild Distress Cardiovascular: Yes: S1, S2 Respiratory: Yes: Regular, CTA Bilaterally Gastrointestinal: Yes: Normal Bowel Sounds, Soft Musculoskeletal: Yes: WNL Extremities: Yes: Other 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: Yes: Alert, Oriented Psychiatric: Yes: Alert, Oriented Labs: CBC, BMP 11/02/19 10:40 Assessment/Plan Problem List - Problems (1) Alcohol dependence with uncomplicated withdrawal Code(s): F10.230 - ALCOHOL DEPENDENCE WITH WITHDRAWAL, UNCOMPLICATED (2) Cellulitis of hand Code(s): L03.119 - CELLULITIS OF UNSPECIFIED PART OF LIMB (3) Nicotine dependence Code(s): F17.200 - NICOTINE DEPENDENCE, UNSPECIFIED, UNCOMPLICATED Qualifiers: (4) Bipolar 1 disorder Code(s): F31.9 - BIPOLAR DISORDER, UNSPECIFIED (5) Chronic hepatitis C virus infection Code(s): B18.2 - CHRONIC VIRAL HEPATITIS C Qualifiers: (6) Crack cocaine use Code(s): F14.90 - COCAINE USE, UNSPECIFIED, UNCOMPLICATED (7) Insulin dependent diabetes mellitus Code(s): E11.9 - TYPE 2 DIABETES MELLITUS WITHOUT COMPLICATIONS; Z79.4 - FIELD INVESTIGATOR (CURRENT) USE OF INSULIN 8 gm positive bactermia plan repeat blood cx ordered echo ordered continue abx hydration close watch
[2019-11-02 11:54] LABS: ALBUMIN 2.9 g/dl (3.4-5.0); BILIRUBIN,TOTAL 0.2 mg/dL (0.2-1); BLOOD UREA NITROGEN 19.1 mg/dL (7-18); CALCIUM 7.5 mg/dL (8.5-10.1); CREATININE 1.1 mg/dL (0.55-1.3); POTASSIUM 4.2 mmol/L (3.5-5.1); TOT PROT 6.8 g/dl (6.4-8.2)
--- NOTE | 2019-11-02 11:58 | CON.PSY ---
Psychiatry Consult Chief Complaint: I am nervbous , i need to gho to Rehab. I took some thing strong while waiting to go to Rehab. I wass in [place] about a month ago. I was not trying to KIll myself. I am not going to hurt myself. I* want to go to rehab. Symptoms: reports: Anxiety - Previous Psychiatric Treatment Outpatient: None Inpatient: None, One prior admission - Previous Substance Abuse Treatment Outpatient: Less than 6 mos ago Inpatient: 2 or more prior admissions - Reason for Previous Treatment Reason for Previous Treatment: Heroin or Other Narcotics - Current Medications Current Medications: Active Medications Acetaminophen (Tylenol -) 650 mg PO Q6H PRN PRN Reason: FEVER Clonidine (Catapres -) 0.1 mg PO BID [facility] Last Admin: 11/02/19 09:04 Dose: 0.1 mg Gabapentin (Neurontin -) 300 mg PO TID [facility] Last Admin: 11/02/19 05:11 Dose: 300 mg Heparin Sodium (Porcine) (Heparin -) 5,000 unit SQ BID [facility] Last Admin: 11/02/19 09:08 Dose: 5,000 unit Sodium Chloride (Normal Saline -) 1,000 mls @ 125 mls/hr IV ASDIR [facility] Last Admin: 11/02/19 02:31 Dose: Not Given Piperacillin Sod/Tazobactam (Sod 3.375 gm/ Dextrose) 50 mls @ 100 mls/hr IVPB Q8H-IV [facility]; Protocol Last Admin: 11/02/19 09:03 Dose: 100 mls/hr Insulin Aspart (Novolog Vial Sliding Scale -) 1 vial SQ ACHS [facility]; Protocol Last Admin: 11/02/19 11:27 Dose: 8 unit Lorazepam (Ativan -) 0.5 mg PO Q6H [facility] Stop: 11/03/19 23:01 Lorazepam (Ativan -) 0.5 mg PO Q4H PRN PRN Reason: Symptoms of Withdrawal Stop: 11/04/19 00:00 Lorazepam (Ativan -) 0.5 mg PO ONCE ONE Stop: 11/04/19 05:01 Lorazepam (Ativan -) 1 mg PO 0500,1100,1700,2300 [facility] Stop: 11/02/19 23:01 Last Admin: 11/02/19 11:25 Dose: 1 mg Lorazepam (Ativan -) 1 mg PO Q4H PRN PRN Reason: Symptoms of Withdrawal Stop: 11/03/19 00:00 Last Admin: 11/02/19 08:54 Dose: 1 mg Quetiapine Fumarate (Seroquel -) 25 mg PO BID [facility] - Allergies Allergies: Allergies Allergy/AdvReac Type Severity Reaction Status Date / Time soy Allergy Severe Difficulty Verified 10/31/19 16:47 Breathing Sulfa (Sulfonamide Allergy Severe Verified 10/31/19 16:47 Antibiotics) - Current Living Status Usual Living Arrangement: With Parent - Current Mental Status Evaluation Appearance: Well Groomed Attitude: Cooperative - Affect Affect: Labile Appropriateness: Appropriate to Content - Mood Mood: Anxious, Irritable - Speech/Language Expressive: Coherent - Psychomotor Activity Psychomotor Activity: Hyperactive - Thought Process Thought Process: Intact - Thought Content Hallucinations: Absent Delusions: Absent - Self Perception Self Perception: No Impairment - Cognition Attention: Alert Orientation: Time Memory, Immediate Recall: Intact Memory, Short Term: 3/3 Memory, Remote with Promptin/3 - Concentration Serial Sevens Intact: Yes Simple Calculations Intact: Yes - Abstraction Proverb Interpretation: Intact Judgement: Minimally Impaired - Insight Insight: Intact - Impulse Control Impulse Control: Good Control - Suicidal Ideation Suicidal Ideation: No - Homicidal Ideation Homicidal Ideation: No Assessment/Plan 1) d/c Janet and Latclementina. 2) Seroquel 25 mg po bid. 3) Patient is not Suicidal, can be transferred to Rehab when Medically stable.
[2019-11-02] MEDS ORDERED: KETOROLAC TROMETHAMINE 30 MG/1 ML VIAL IVPUSH PRN (16:46)
--- NOTE | 2019-11-02 16:50 | PN ---
Progress Note, Physician - Current Medication List Current Medications: Active Medications Acetaminophen (Tylenol -) 650 mg PO Q6H PRN PRN Reason: FEVER Clonidine (Catapres -) 0.1 mg PO BID [facility] Last Admin: 11/02/19 09:04 Dose: 0.1 mg Gabapentin (Neurontin -) 300 mg PO TID [facility] Last Admin: 11/02/19 13:26 Dose: 300 mg Heparin Sodium (Porcine) (Heparin -) 5,000 unit SQ BID [facility] Last Admin: 11/02/19 09:08 Dose: 5,000 unit Sodium Chloride (Normal Saline -) 1,000 mls @ 125 mls/hr IV ASDIR [facility] Last Admin: 11/02/19 02:31 Dose: Not Given Piperacillin Sod/Tazobactam (Sod 3.375 gm/ Dextrose) 50 mls @ 100 mls/hr IVPB Q8H-IV [facility]; Protocol Last Admin: 11/02/19 09:03 Dose: 100 mls/hr Insulin Aspart (Novolog Vial Sliding Scale -) 1 vial SQ ACHS [facility]; Protocol Last Admin: 11/02/19 16:26 Dose: 6 unit Ketorolac Tromethamine (Toradol Injection -) 30 mg IVPUSH Q6H PRN PRN Reason: PAIN LEVEL 6-10 Stop: 11/07/19 16:45 Lorazepam (Ativan -) 0.5 mg PO Q6H [facility] Stop: 11/03/19 23:01 Lorazepam (Ativan -) 0.5 mg PO Q4H PRN PRN Reason: Symptoms of Withdrawal Stop: 11/04/19 00:00 Lorazepam (Ativan -) 0.5 mg PO ONCE ONE Stop: 11/04/19 05:01 Lorazepam (Ativan -) 1 mg PO 0500,1100,1700,2300 [facility] Stop: 11/02/19 23:01 Last Admin: 11/02/19 16:23 Dose: 1 mg Lorazepam (Ativan -) 1 mg PO Q4H PRN PRN Reason: Symptoms of Withdrawal Stop: 11/03/19 00:00 Last Admin: 11/02/19 13:26 Dose: 1 mg Quetiapine Fumarate (Seroquel -) 25 mg PO BID [facility] - Objective Vital Signs: Vital Signs Temperature 98.3 F 11/02/19 14:00 Pulse Rate 85 11/02/19 14:00 Respiratory Rate 22 H 11/02/19 14:00 Blood Pressure 119/75 11/02/19 14:00 O2 Sat by Pulse Oximetry (%) 98 11/02/19 09:16 Constitutional: Yes: Anxious HENT: Yes: Atraumatic Neck: Yes: Supple Cardiovascular: Yes: Regular Rate and Rhythm Respiratory: Yes: CTA Bilaterally Gastrointestinal: Yes: Normal Bowel Sounds Extremities: Yes: Other (both hands cellulitis) Edema: Yes Edema: LUE: 1+, RUE: 1+ 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: Yes: Alert, Oriented Labs: CBC, BMP 11/02/19 10:40 11/02/19 10:40 Problem List - Problems (1) Alcohol dependence with uncomplicated withdrawal Assessment/Plan: detox consult got librium Code(s): F10.230 - ALCOHOL DEPENDENCE WITH WITHDRAWAL, UNCOMPLICATED (2) Cellulitis of hand Assessment/Plan: iv abx id consult Code(s): L03.119 - CELLULITIS OF UNSPECIFIED PART OF LIMB (3) Nicotine dependence Code(s): F17.200 - NICOTINE DEPENDENCE, UNSPECIFIED, UNCOMPLICATED Qualifiers: (4) Bipolar 1 disorder Assessment/Plan: on meds psych consult Code(s): F31.9 - BIPOLAR DISORDER, UNSPECIFIED (5) Chronic hepatitis C virus infection Code(s): B18.2 - CHRONIC VIRAL HEPATITIS C Qualifiers: (6) Crack cocaine use Code(s): F14.90 - COCAINE USE, UNSPECIFIED, UNCOMPLICATED (7) Insulin dependent diabetes mellitus Code(s): E11.9 - TYPE 2 DIABETES MELLITUS WITHOUT COMPLICATIONS; Z79.4 - VENTILATION EQUIPMENT TENDER (CURRENT) USE OF INSULIN
[2019-11-02] MEDS: MORPHINE SULFATE 2 MG/ML VIAL IVPUSH PRN (18:18)
[2019-11-02] MEDS: QUEtiapine FUMARATE 25 MG TABLET PO SCH (22:44)
[2019-11-03] MEDS ORDERED: chlordiazePOXIDE HCL 10 MG CAPSULE PO PRN
[2019-11-03] MEDS: MORPHINE SULFATE 2 MG/ML VIAL IVPUSH PRN ×2 (00:06→06:01)
[2019-11-03] MEDS ORDERED: DEXTROSE 5%-WATER - 50 ML IVPB ONE ×3 (01:13→17:02)
[2019-11-03] MEDS ORDERED: PIPERACILLIN/TAZOBACTAM 3.375 GM VIAL IVPB ONE ×3 (01:13→17:02)
[2019-11-03] MEDS: PIPERACILLIN/TAZOB 3.375 GM 3.375 GM in DEXTROSE 5%-WATER - 50 ML IVPB SCH ×3 (01:44→17:06)
[2019-11-03] MEDS ORDERED: chlordiazePOXIDE HCL 10 MG CAPSULE PO SCH (05:00)
[2019-11-03] MEDS: LORazepam 0.5 MG TABLET PO SCH ×4 (06:00→22:01)
[2019-11-03] MEDS: GABAPENTIN 300 MG CAPSULE PO SCH ×3 (06:01→21:56)
[2019-11-03] MEDS: INSULIN SLIDING SCALE (NOVOLOG) 1 VIAL SQ SCH ×4 (06:08→21:56)
[2019-11-03 08:12] LABS: BLOOD UREA NITROGEN 18.6 mg/dL (7-18); CALCIUM 8.3 mg/dL (8.5-10.1); POTASSIUM 4.2 mmol/L (3.5-5.1)
[2019-11-03 08:38] LABS: HEMATOCRIT 35.4 % (32.4-45.2); HEMOGLOBIN 11.5 GM/dL (10.7-15.3); MCH 28.9 pg (25.7-33.7); MCHC 32.5 g/dl (32.0-36.0); MEAN CELL VOLUME 88.9 fl (80-96); RBC 3.98 M/mm3 (3.60-5.2); RDW 22.6 % (11.6-15.6); WHITE BLOOD COUNT 5.3 K/mm3 (4.0-10.0)
[2019-11-03] MEDS: LORazepam 0.5 MG TABLET PO PRN ×2 (08:46→23:43)
[2019-11-03] MEDS: HEPARIN NA (PORCINE) 5,000 UNITS/ML 1ML VIAL SQ SCH ×2 (09:14→21:57)
[2019-11-03] MEDS: cloNIDine HCL 0.1 MG TABLET PO SCH (09:14)
[2019-11-03] MEDS: QUEtiapine FUMARATE 25 MG TABLET PO SCH ×2 (09:14→21:56)
--- NOTE | 2019-11-03 09:57 | HOSP ---
Subjective - Review of Symptoms General: Yes: Fatigue, Malaise HEENT: Yes: Head Aches Gastrointestinal: Yes: Other 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: Yes: Weakness, Other (pain "all over") Physical Examination Vital Signs: Vital Signs Temperature 97.8 F 11/03/19 08:50 Pulse Rate 84 11/03/19 08:50 Respiratory Rate 16 11/03/19 08:50 Blood Pressure 110/65 11/03/19 08:50 O2 Sat by Pulse Oximetry (%) 98 11/02/19 09:16 Constitutional: Yes: Anxious HENT: Yes: Atraumatic Neck: Yes: WNL Respiratory: Yes: Diminished Gastrointestinal: Yes: Soft Labs: CBC, BMP 11/03/19 06:50 11/03/19 06:50 Hospitalist Encounter Assessment: I was asked to see patient after patient stated she wanted to sign out AMA. Patient is a 38 year old female with a significant past medical history of EtOH abuse, HCV, heroin abuse presents with heroin overdose. She also found to have bactermia and is on zosyn. She is asking to sign out ama as she feels she her pain is not being adequately controlled with, morphine 2mg q6. States morphine wears out quickly and was given last today at 0600, and pain now all over and /10. Has been using drugs (heroin) since her teenage years, was on methadone in the past but no longer on this medications. Used to inject drugs a few years ago but now snorts heroin. She also abuses etoh and is on a ativan taper. POC discussed with her, explained to her that her blood cultures are + and that she is currently getting treatment with Zosyn. Patient agrees to stay and wait for detox physician. does not want to sign out ama at this time. plan: for generalized pain 10/10, give morphine 2mg now as a one time dose detox physician informed/consult called in, and will see patient today for further recommendations on detox. nargis osuna [facility] np [phone]
[2019-11-03] MEDS ORDERED: MORPHINE SULFATE 2 MG/ML VIAL IVPUSH ONE (10:00)
[2019-11-03 11:31] LABS: MEAN PLT VOLUME 9.5 fl (7.5-11.1); PLATELET COUNT 165 K/MM3 (134-434)
--- NOTE | 2019-11-03 11:36 | PN ---
Progress Note, Physician History of Present Illness: pain all over the body feels skin crawling - Current Medication List Current Medications: Active Medications Acetaminophen (Tylenol -) 650 mg PO Q6H PRN PRN Reason: FEVER Clonidine (Catapres -) 0.1 mg PO BID [facility] Last Admin: 11/03/19 09:14 Dose: 0.1 mg Gabapentin (Neurontin -) 300 mg PO TID [facility] Last Admin: 11/03/19 06:01 Dose: 300 mg Heparin Sodium (Porcine) (Heparin -) 5,000 unit SQ BID [facility] Last Admin: 11/03/19 09:14 Dose: 5,000 unit Piperacillin Sod/Tazobactam (Sod 3.375 gm/ Dextrose) 50 mls @ 100 mls/hr IVPB Q8H-IV [facility]; Protocol Last Admin: 11/03/19 09:15 Dose: 100 mls/hr Insulin Aspart (Novolog Vial Sliding Scale -) 1 vial SQ ACHS [facility]; Protocol Last Admin: 11/03/19 11:29 Dose: 6 unit Lorazepam (Ativan -) 0.5 mg PO Q6H [facility] Stop: 11/03/19 23:01 Last Admin: 11/03/19 11:22 Dose: 0.5 mg Lorazepam (Ativan -) 0.5 mg PO Q4H PRN PRN Reason: Symptoms of Withdrawal Stop: 11/04/19 00:00 Last Admin: 11/03/19 08:46 Dose: 0.5 mg Lorazepam (Ativan -) 0.5 mg PO ONCE ONE Stop: 11/04/19 05:01 Morphine Sulfate (Morphine Sulfate) 2 mg IVPUSH Q6H PRN PRN Reason: PAIN LEVEL 4 - 6 Last Admin: 11/03/19 06:01 Dose: 2 mg Quetiapine Fumarate (Seroquel -) 25 mg PO BID [facility] Last Admin: 11/03/19 09:14 Dose: 25 mg - Objective Vital Signs: Vital Signs Temperature 97.8 F 11/03/19 08:50 Pulse Rate 84 11/03/19 08:50 Respiratory Rate 16 11/03/19 08:50 Blood Pressure 110/65 11/03/19 08:50 O2 Sat by Pulse Oximetry (%) 98 11/02/19 09:16 Constitutional: Yes: Calm, Anxious Cardiovascular: Yes: Regular Rate and Rhythm Respiratory: Yes: Regular, CTA Bilaterally Gastrointestinal: Yes: Normal Bowel Sounds, Soft Musculoskeletal: Yes: WNL Extremities: Yes: WNL 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: Yes: Alert, Oriented Psychiatric: Yes: Alert, Oriented Labs: CBC, BMP 11/03/19 06:50 11/03/19 06:50 Assessment/Plan Problem List - Problems (1) Alcohol dependence with uncomplicated withdrawal Code(s): F10.230 - ALCOHOL DEPENDENCE WITH WITHDRAWAL, UNCOMPLICATED (2) Cellulitis of hand Code(s): L03.119 - CELLULITIS OF UNSPECIFIED PART OF LIMB (3) Nicotine dependence Code(s): F17.200 - NICOTINE DEPENDENCE, UNSPECIFIED, UNCOMPLICATED Qualifiers: (4) Bipolar 1 disorder Code(s): F31.9 - BIPOLAR DISORDER, UNSPECIFIED (5) Chronic hepatitis C virus infection Code(s): B18.2 - CHRONIC VIRAL HEPATITIS C Qualifiers: (6) Crack cocaine use Code(s): F14.90 - COCAINE USE, UNSPECIFIED, UNCOMPLICATED (7) Insulin dependent diabetes mellitus Code(s): E11.9 - TYPE 2 DIABETES MELLITUS WITHOUT COMPLICATIONS; Z79.4 - WORKERS 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
--- NOTE | 2019-11-03 12:56 | CONSULT ---
Consult Detox [facility] Reason for Current Admission/Consult: Patient has alcohol and opioid dependence and overdosed on day of admission Referred by:: Dr. Hakeem Tracy - History History of Present Illness: 38 year old ETOH, Heroin, IDDM, HCV disease S/P O/D on heroin 10/31/19. She also was found to have bilateral hand cellulitis and is currently on IV antibiotics. Since admission she has been complaining of withdrawal symptoms. - History Source History Provided By: Medical Record Limitations to Obtaining History: No Limitations - Alcohol/Substance Use Hx Alcohol Use: Yes (1 bottle of vodka daily) Hx Substance Use: Yes (heroin 1 bundle daily) Hx Substance Use Treatment: Yes (multiple detoxes in past) - Current Drug/Alcohol Use Alcohol Route: Oral Frequency: Daily Amount used: 1 pint vodka daily Age of first use: 19 Date of Last Use: 10/31/19 Heroin Route: Injection Frequency: Daily Amount used: 1 bundle of heroin Age of first use: 21 Date of Last Use: 10/31/19 - Past Medical History ...LMP: 10/25/19 ...: No Infectious Disease: Yes: Other (HCV) Endocrine: Yes: Diabetes Mellitus - Past Surgical History Past Surgical History: Yes: None - Significant Medical Findings: Acetaminophen (Tylenol -) 650 mg PO Q6H PRN PRN Reason: FEVER Clonidine (Catapres -) 0.1 mg PO BID [facility] Last Admin: 11/03/19 09:14 Dose: 0.1 mg Gabapentin (Neurontin -) 300 mg PO TID [facility] Last Admin: 11/03/19 06:01 Dose: 300 mg Heparin Sodium (Porcine) (Heparin -) 5,000 unit SQ BID [facility] Last Admin: 11/03/19 09:14 Dose: 5,000 unit Piperacillin Sod/Tazobactam (Sod 3.375 gm/ Dextrose) 50 mls @ 100 mls/hr IVPB Q8H-IV [facility]; Protocol Last Admin: 11/03/19 09:15 Dose: 100 mls/hr Insulin Aspart (Novolog Vial Sliding Scale -) 1 vial SQ ACHS [facility]; Protocol Last Admin: 11/03/19 11:29 Dose: 6 unit Lorazepam (Ativan -) 0.5 mg PO Q6H [facility] Stop: 11/03/19 23:01 Last Admin: 11/03/19 11:22 Dose: 0.5 mg Lorazepam (Ativan -) 0.5 mg PO Q4H PRN PRN Reason: Symptoms of Withdrawal Stop: 11/04/19 00:00 Last Admin: 11/03/19 08:46 Dose: 0.5 mg Lorazepam (Ativan -) 0.5 mg PO ONCE ONE Stop: 11/04/19 05:01 Morphine Sulfate (Morphine Sulfate) 2 mg IVPUSH Q6H PRN PRN Reason: PAIN LEVEL 4 - 6 Last Admin: 11/03/19 06:01 Dose: 2 mg Quetiapine Fumarate (Seroquel -) 25 mg PO BID [facility] Last Admin: 11/03/19 09:14 Dose: 25 mg - Objective Vital Signs: Vital Signs Temperature 97.8 F 11/03/19 08:50 Pulse Rate 84 11/03/19 08:50 Respiratory Rate 16 11/03/19 08:50 Blood Pressure 110/65 11/03/19 08:50 O2 Sat by Pulse Oximetry (%) 98 11/02/19 09:16 P/E: As per resident Constitutional: Yes: Calm, Anxious Cardiovascular: Yes: Regular Rate and Rhythm Respiratory: Yes: Regular, CTA Bilaterally Gastrointestinal: Yes: Normal Bowel Sounds, Soft Musculoskeletal: Yes: WNL Extremities: Yes: WNL 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: Yes: Alert, Oriented Psychiatric: Yes: Alert, Oriented Assessment Plan - Plan Plan: 1. Alcohol Dependence: Ativan can be continued as prescribed. Once medically stable and completed deto, may D/C Ativan and refer to [facility] for Rehab services. 2. Opioid Dependence: D/C Morphine. Will start Moderate Methadone Detox protocol. 3. Cellulitis B/L Hands: Continue IV antibiotics as required. She may complete detox while hospitalized at [facility]. Dr. Salas - Medication Detox Regimen/Protocol: Ativan, Methadone
[2019-11-03] MEDS ORDERED: METHADONE HCL 10 MG TABLET PO ONE (13:15)
--- NOTE | 2019-11-03 16:06 | ECHO ---
Name: MAXANER, MAKSIM Exam:Adult Echocardiogram Study Date: 11/03/2019 12:46 PM Age: 38 yrs Height: 64 in Weight: 131 lb BSA: 1.6 m2 MMode/2D Measurements & Calculations IVSd: 0.94 cm Ao root diam: 2.1 cm LVIDd: 3.0 cm LA dimension: 2.9 cm LVIDs: 1.9 cm ACS: 1.5 cm LVPWd: 0.87 cm EDV(Teich): 34.8 ml LVOT diam: 1.8 cm ESV(Teich): 10.9 ml RV S Reji: 12.9 cm/sec Doppler Measurements & Calculations MV E max reji: 55.3 cm/sec Ao V2 max: 132.0 cm/sec MV A max reji: 79.0 cm/sec Ao max P.0 mmHg MV E/A: 0.70 Ao V2 mean: 99.1 cm/sec MV dec time: 0.15 sec Ao mean P.3 mmHg Ao V2 VTI: 24.4 cm JAY(I,D): 1.6 cm2 JAY(V,D): 1.6 cm2 LV V1 max P.0 mmHg MR max reji: 152.9 cm/sec LV V1 mean P.6 mmHg MR max P.4 mmHg LV V1 max: 86.4 cm/sec LV V1 mean: 59.6 cm/sec LV V1 VTI: 15.9 cm SV(LVOT): 38.9 ml TR max reji: 159.3 cm/sec TR max P.3 mmHg PA V2 max: 73.1 cm/sec Med Peak E' Reji: 7.8 cm/sec PA max P.1 mmHg Med E/e': 7.1 Lat Peak E' Reji: 10.6 cm/sec Lat E/e': 5.2 Procedure A complete two-dimensional transthoracic echocardiogram was performed (2D, M-mode, Doppler and color flow Doppler). Left Ventricle The left ventricular size, thickness and function are normal. The left ventricular ejection fraction is normal. Ejection Fraction = 60-65%. The left ventricular wall motion is normal. Right Ventricle The right ventricle is normal in size and function. Atria Normal left and right atrial size and function. Mitral Valve There is no mitral regurgitation noted. Tricuspid Valve There is trace tricuspid regurgitation. There was insufficient TR detected to calculate RV systolic p ressure. Aortic Valve No hemodynamically significant valvular aortic stenosis. No aortic regurgitation is present. Pulmonic Valve There is no pulmonic valvular regurgitation. Great Vessels The aortic root is normal size. Pericardium/Pleura There is no pericardial effusion. Interpretation Summary The left ventricular size, thickness and function are normal The right ventricle is normal in size and function. There is trace tricuspid regurgitation. MD Desmond Rodríguez 11/03/2019 04:06 PM
--- NOTE | 2019-11-03 16:49 | PN ---
Progress Note, Physician - Current Medication List Current Medications: Active Medications Acetaminophen (Tylenol -) 650 mg PO Q6H PRN PRN Reason: FEVER Clonidine (Catapres -) 0.1 mg PO Q4H PRN PRN Reason: Withdrawal Symptoms Stop: 11/04/19 23:59 Gabapentin (Neurontin -) 300 mg PO TID [facility] Last Admin: 11/03/19 13:26 Dose: 300 mg Heparin Sodium (Porcine) (Heparin -) 5,000 unit SQ BID [facility] Last Admin: 11/03/19 09:14 Dose: 5,000 unit Piperacillin Sod/Tazobactam (Sod 3.375 gm/ Dextrose) 50 mls @ 100 mls/hr IVPB Q8H-IV [facility]; Protocol Last Admin: 11/03/19 09:15 Dose: 100 mls/hr Insulin Aspart (Novolog Vial Sliding Scale -) 1 vial SQ ACHS [facility]; Protocol Last Admin: 11/03/19 11:29 Dose: 6 unit Lorazepam (Ativan -) 0.5 mg PO Q6H [facility] Stop: 11/03/19 23:01 Last Admin: 11/03/19 11:22 Dose: 0.5 mg Lorazepam (Ativan -) 0.5 mg PO Q4H PRN PRN Reason: Symptoms of Withdrawal Stop: 11/04/19 00:00 Last Admin: 11/03/19 08:46 Dose: 0.5 mg Lorazepam (Ativan -) 0.5 mg PO ONCE ONE Stop: 11/04/19 05:01 Methadone HCl (Dolophine -) 15 mg PO ONCE ONE Stop: 11/04/19 10:01 Methadone HCl (Dolophine -) 10 mg PO ONCE ONE Stop: 11/05/19 10:01 Methadone HCl (Dolophine -) 5 mg PO ONCE ONE Stop: 11/06/19 06:01 Quetiapine Fumarate (Seroquel -) 25 mg PO BID [facility] Last Admin: 11/03/19 09:14 Dose: 25 mg - Objective Vital Signs: Vital Signs Temperature 97.9 F 11/03/19 14:55 Pulse Rate 81 11/03/19 14:55 Respiratory Rate 16 11/03/19 14:55 Blood Pressure 113/54 L 11/03/19 14:55 O2 Sat by Pulse Oximetry (%) 97 01/23/20 10:00 Constitutional: Yes: No Distress HENT: Yes: Atraumatic Neck: Yes: Supple Cardiovascular: Yes: Regular Rate and Rhythm Respiratory: Yes: CTA Bilaterally Gastrointestinal: Yes: Normal Bowel Sounds Extremities: Yes: WNL Edema: No Peripheral Pulses WNL: Yes 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: Yes: Alert, Oriented Labs: CBC, BMP 11/03/19 06:50 11/03/19 06:50 Problem List - Problems (1) Alcohol dependence with uncomplicated withdrawal Assessment/Plan: detox consult on methadone Code(s): F10.230 - ALCOHOL DEPENDENCE WITH WITHDRAWAL, UNCOMPLICATED (2) Cellulitis of hand Assessment/Plan: iv abx id consult Code(s): L03.119 - CELLULITIS OF UNSPECIFIED PART OF LIMB (3) Nicotine dependence Code(s): F17.200 - NICOTINE DEPENDENCE, UNSPECIFIED, UNCOMPLICATED Qualifiers: (4) Bipolar 1 disorder Assessment/Plan: on meds psych consult Code(s): F31.9 - BIPOLAR DISORDER, UNSPECIFIED (5) Chronic hepatitis C virus infection Code(s): B18.2 - CHRONIC VIRAL HEPATITIS C Qualifiers: (6) Crack cocaine use Code(s): F14.90 - COCAINE USE, UNSPECIFIED, UNCOMPLICATED (7) Insulin dependent diabetes mellitus Code(s): E11.9 - TYPE 2 DIABETES MELLITUS WITHOUT COMPLICATIONS; Z79.4 - USP (CURRENT) USE OF INSULIN
[2019-11-03] MEDS: cloNIDine HCL 0.1 MG TABLET PO PRN (18:17)
[2019-11-04] MEDS ORDERED: PIPERACILLIN/TAZOBACTAM 3.375 GM VIAL IVPB ONE ×3 (01:33→17:38)
[2019-11-04] MEDS ORDERED: DEXTROSE 5%-WATER - 50 ML IVPB ONE ×3 (01:33→17:38)
[2019-11-04] MEDS: PIPERACILLIN/TAZOB 3.375 GM 3.375 GM in DEXTROSE 5%-WATER - 50 ML IVPB SCH ×3 (01:47→18:05)
[2019-11-04] MEDS: MELATONIN 5 MG TABLETS PO PRN ×2 (03:31→22:18)
[2019-11-04] MEDS: LORazepam 0.5 MG TABLET PO PRN ×4 (03:31→22:18)
[2019-11-04] MEDS ORDERED: chlordiazePOXIDE HCL 10 MG CAPSULE PO ONE (05:00)
[2019-11-04] MEDS ORDERED: LORazepam 0.5 MG TABLET PO ONE (05:00)
[2019-11-04] MEDS: GABAPENTIN 300 MG CAPSULE PO SCH ×3 (06:52→21:36)
[2019-11-04] MEDS: INSULIN SLIDING SCALE (NOVOLOG) 1 VIAL SQ SCH ×4 (06:52→21:37)
[2019-11-04] MEDS: HEPARIN NA (PORCINE) 5,000 UNITS/ML 1ML VIAL SQ SCH ×2 (09:01→21:44)
[2019-11-04] MEDS: QUEtiapine FUMARATE 25 MG TABLET PO SCH ×2 (09:02→21:37)
[2019-11-04] MEDS ORDERED: METHADONE HCL 5 MG TABLET PO ONE (10:00)
[2019-11-04] MEDS: cloNIDine HCL 0.1 MG TABLET PO PRN ×3 (10:01→21:36)
--- NOTE | 2019-11-04 11:06 | PN ---
Progress Note, Physician - Current Medication List Current Medications: Active Medications Acetaminophen (Tylenol -) 650 mg PO Q6H PRN PRN Reason: FEVER Clonidine (Catapres -) 0.1 mg PO Q4H PRN PRN Reason: Withdrawal Symptoms Stop: 11/04/19 23:59 Last Admin: 11/04/19 10:01 Dose: 0.1 mg Gabapentin (Neurontin -) 300 mg PO TID [facility] Last Admin: 11/04/19 06:52 Dose: 300 mg Heparin Sodium (Porcine) (Heparin -) 5,000 unit SQ BID [facility] Last Admin: 11/04/19 09:01 Dose: Not Given Piperacillin Sod/Tazobactam (Sod 3.375 gm/ Dextrose) 50 mls @ 100 mls/hr IVPB Q8H-IV [facility]; Protocol Last Admin: 11/04/19 09:01 Dose: 100 mls/hr Insulin Aspart (Novolog Vial Sliding Scale -) 1 vial SQ ACHS [facility]; Protocol Last Admin: 11/04/19 06:52 Dose: 2 unit Melatonin (Melatonin) 5 mg PO HS PRN PRN Reason: INSOMNIA Last Admin: 11/04/19 03:31 Dose: 5 mg Methadone HCl (Dolophine -) 10 mg PO ONCE ONE Stop: 11/05/19 10:01 Methadone HCl (Dolophine -) 5 mg PO ONCE ONE Stop: 11/06/19 06:01 Quetiapine Fumarate (Seroquel -) 25 mg PO BID [facility] Last Admin: 11/04/19 09:02 Dose: 25 mg - Objective Vital Signs: Vital Signs Temperature 97.6 F 11/04/19 08:58 Pulse Rate 91 H 11/04/19 08:58 Respiratory Rate 18 11/04/19 08:58 Blood Pressure 107/65 11/04/19 08:58 O2 Sat by Pulse Oximetry (%) 96 11/03/19 22:00 Constitutional: Yes: No Distress HENT: Yes: Atraumatic Neck: Yes: Supple Cardiovascular: Yes: Regular Rate and Rhythm Respiratory: Yes: CTA Bilaterally Gastrointestinal: Yes: Normal Bowel Sounds Extremities: Yes: Other (Hands much improving) Edema: LUE: Trace (hands), RUE: Trace 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: Yes: Alert, Oriented Labs: CBC, BMP 11/03/19 06:50 11/03/19 06:50 Problem List - Problems (1) Alcohol dependence with uncomplicated withdrawal Assessment/Plan: detox consult on methadone Code(s): F10.230 - ALCOHOL DEPENDENCE WITH WITHDRAWAL, UNCOMPLICATED (2) Cellulitis of hand Assessment/Plan: iv abx id consult Code(s): L03.119 - CELLULITIS OF UNSPECIFIED PART OF LIMB (3) Nicotine dependence Code(s): F17.200 - NICOTINE DEPENDENCE, UNSPECIFIED, UNCOMPLICATED Qualifiers: (4) Bipolar 1 disorder Assessment/Plan: on meds psych consult Code(s): F31.9 - BIPOLAR DISORDER, UNSPECIFIED (5) Chronic hepatitis C virus infection Code(s): B18.2 - CHRONIC VIRAL HEPATITIS C Qualifiers: (6) Crack cocaine use Code(s): F14.90 - COCAINE USE, UNSPECIFIED, UNCOMPLICATED (7) Insulin dependent diabetes mellitus Code(s): E11.9 - TYPE 2 DIABETES MELLITUS WITHOUT COMPLICATIONS; Z79.4 - [facility] (CURRENT) USE OF INSULIN
--- NOTE | 2019-11-04 12:24 | PN ---
Progress Note, Physician History of Present Illness: pain all over the body f - Current Medication List Current Medications: Active Medications Acetaminophen (Tylenol -) 650 mg PO Q6H PRN PRN Reason: FEVER Clonidine (Catapres -) 0.1 mg PO Q4H PRN PRN Reason: Withdrawal Symptoms Stop: 11/04/19 23:59 Last Admin: 11/04/19 10:01 Dose: 0.1 mg Gabapentin (Neurontin -) 300 mg PO TID [facility] Last Admin: 11/04/19 06:52 Dose: 300 mg Heparin Sodium (Porcine) (Heparin -) 5,000 unit SQ BID [facility] Last Admin: 11/04/19 09:01 Dose: Not Given Piperacillin Sod/Tazobactam (Sod 3.375 gm/ Dextrose) 50 mls @ 100 mls/hr IVPB Q8H-IV [facility]; Protocol Last Admin: 11/04/19 09:01 Dose: 100 mls/hr Insulin Aspart (Novolog Vial Sliding Scale -) 1 vial SQ ACHS [facility]; Protocol Last Admin: 11/04/19 12:11 Dose: 6 unit Melatonin (Melatonin) 5 mg PO HS PRN PRN Reason: INSOMNIA Last Admin: 11/04/19 03:31 Dose: 5 mg Methadone HCl (Dolophine -) 10 mg PO ONCE ONE Stop: 11/05/19 10:01 Methadone HCl (Dolophine -) 5 mg PO ONCE ONE Stop: 11/06/19 06:01 Quetiapine Fumarate (Seroquel -) 25 mg PO BID [facility] Last Admin: 11/04/19 09:02 Dose: 25 mg - Objective Vital Signs: Vital Signs Temperature 97.6 F 11/04/19 08:58 Pulse Rate 91 H 11/04/19 08:58 Respiratory Rate 18 11/04/19 08:58 Blood Pressure 107/65 11/04/19 08:58 O2 Sat by Pulse Oximetry (%) 98 11/04/19 10:00 Constitutional: Yes: Calm, Anxious Eyes: Yes: Conjunctiva Clear Cardiovascular: Yes: S1, S2 Respiratory: Yes: Regular, CTA Bilaterally Gastrointestinal: Yes: Normal Bowel Sounds, Soft Musculoskeletal: Yes: WNL Extremities: Yes: Other 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: Yes: Alert, Oriented Psychiatric: Yes: Alert, Oriented Labs: CBC, BMP 11/03/19 06:50 01/23/20 06:50 Assessment/Plan Problem List - Problems (1) Alcohol dependence with uncomplicated withdrawal Code(s): F10.230 - ALCOHOL DEPENDENCE WITH WITHDRAWAL, UNCOMPLICATED (2) Cellulitis of hand Code(s): L03.119 - CELLULITIS OF UNSPECIFIED PART OF LIMB (3) Nicotine dependence Code(s): F17.200 - NICOTINE DEPENDENCE, UNSPECIFIED, UNCOMPLICATED Qualifiers: (4) Bipolar 1 disorder Code(s): F31.9 - BIPOLAR DISORDER, UNSPECIFIED (5) Chronic hepatitis C virus infection Code(s): B18.2 - CHRONIC VIRAL HEPATITIS C Qualifiers: (6) Crack cocaine use Code(s): F14.90 - COCAINE USE, UNSPECIFIED, UNCOMPLICATED (7) Insulin dependent diabetes mellitus Code(s): E11.9 - TYPE 2 DIABETES MELLITUS WITHOUT COMPLICATIONS; Z79.4 - [facility] (CURRENT) USE OF INSULIN 8 gm positive bactermia plan monitor repeat blood cx noted ct abx rest as per the team
[2019-11-05] MEDS ORDERED: PIPERACILLIN/TAZOBACTAM 3.375 GM VIAL IVPB ONE ×3 (00:54→16:28)
[2019-11-05] MEDS ORDERED: DEXTROSE 5%-WATER - 50 ML IVPB ONE ×3 (00:54→16:28)
[2019-11-05] MEDS: PIPERACILLIN/TAZOB 3.375 GM 3.375 GM in DEXTROSE 5%-WATER - 50 ML IVPB SCH ×4 (01:58→17:04)
[2019-11-05] MEDS: LORazepam 0.5 MG TABLET PO PRN ×5 (02:36→21:18)
[2019-11-05] MEDS: GABAPENTIN 300 MG CAPSULE PO SCH ×3 (06:51→21:17)
[2019-11-05] MEDS: INSULIN SLIDING SCALE (NOVOLOG) 1 VIAL SQ SCH ×4 (06:51→21:15)
[2019-11-05] MEDS: QUEtiapine FUMARATE 25 MG TABLET PO SCH ×2 (09:10→21:18)
[2019-11-05] MEDS: HEPARIN NA (PORCINE) 5,000 UNITS/ML 1ML VIAL SQ SCH ×2 (09:11→21:18)
[2019-11-05] MEDS ORDERED: METHADONE HCL 10 MG TABLET PO ONE (10:00)
--- NOTE | 2019-11-05 11:19 | PN ---
Progress Note, Physician - Current Medication List Current Medications: Active Medications Acetaminophen (Tylenol -) 650 mg PO Q6H PRN PRN Reason: FEVER Clonidine (Catapres -) 0.1 mg PO Q4H PRN PRN Reason: FOR WITHDRAWAL SYMPTOMS Gabapentin (Neurontin -) 300 mg PO TID [facility] Last Admin: 11/05/19 06:51 Dose: 300 mg Heparin Sodium (Porcine) (Heparin -) 5,000 unit SQ BID [facility] Last Admin: 11/05/19 09:11 Dose: Not Given Piperacillin Sod/Tazobactam (Sod 3.375 gm/ Dextrose) 50 mls @ 100 mls/hr IVPB Q8H-IV [facility]; Protocol Last Admin: 11/05/19 11:05 Dose: 100 mls/hr Insulin Aspart (Novolog Vial Sliding Scale -) 1 vial SQ ACHS [facility]; Protocol Last Admin: 11/05/19 06:51 Dose: 4 unit Lorazepam (Ativan -) 0.5 mg PO Q4H PRN PRN Reason: WITHDRAWAL SYMPTOMS Last Admin: 11/05/19 06:56 Dose: 0.5 mg Melatonin (Melatonin) 5 mg PO HS PRN PRN Reason: INSOMNIA Last Admin: 11/04/19 22:18 Dose: 5 mg Methadone HCl (Dolophine -) 5 mg PO ONCE ONE Stop: 11/06/19 06:01 Quetiapine Fumarate (Seroquel -) 25 mg PO BID [facility] Last Admin: 11/05/19 09:10 Dose: 25 mg - Objective Vital Signs: Vital Signs Temperature 97.8 F 11/05/19 11:10 Pulse Rate 88 11/05/19 11:10 Respiratory Rate 16 11/05/19 11:10 Blood Pressure 100/67 11/05/19 11:10 O2 Sat by Pulse Oximetry (%) 98 11/05/19 10:00 Constitutional: Yes: No Distress HENT: Yes: Atraumatic Neck: Yes: Supple Cardiovascular: Yes: Regular Rate and Rhythm Respiratory: Yes: CTA Bilaterally Gastrointestinal: Yes: Normal Bowel Sounds Extremities: Yes: WNL Edema: LUE: Trace, RUE: Trace (hands) 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: Yes: Alert, Oriented Labs: CBC, BMP 11/03/19 06:50 11/03/19 06:50 Problem List - Problems (1) Alcohol dependence with uncomplicated withdrawal Assessment/Plan: detox consult on methadone Code(s): F10.230 - ALCOHOL DEPENDENCE WITH WITHDRAWAL, UNCOMPLICATED (2) Cellulitis of hand Assessment/Plan: iv abx id consult Code(s): L03.119 - CELLULITIS OF UNSPECIFIED PART OF LIMB (3) Nicotine dependence Code(s): F17.200 - NICOTINE DEPENDENCE, UNSPECIFIED, UNCOMPLICATED Qualifiers: (4) Bipolar 1 disorder Assessment/Plan: on meds psych consult Code(s): F31.9 - BIPOLAR DISORDER, UNSPECIFIED (5) Chronic hepatitis C virus infection Code(s): B18.2 - CHRONIC VIRAL HEPATITIS C Qualifiers: (6) Crack cocaine use Code(s): F14.90 - COCAINE USE, UNSPECIFIED, UNCOMPLICATED (7) Insulin dependent diabetes mellitus Code(s): E11.9 - TYPE 2 DIABETES MELLITUS WITHOUT COMPLICATIONS; Z79.4 - [facility] (CURRENT) USE OF INSULIN
--- NOTE | 2019-11-05 12:33 | PN ---
Progress Note, Physician History of Present Illness: stable no new issues pain main issues - Current Medication List Current Medications: Active Medications Acetaminophen (Tylenol -) 650 mg PO Q6H PRN PRN Reason: FEVER Clonidine (Catapres -) 0.1 mg PO Q4H PRN PRN Reason: FOR WITHDRAWAL SYMPTOMS Gabapentin (Neurontin -) 300 mg PO TID [facility] Last Admin: 11/05/19 06:51 Dose: 300 mg Heparin Sodium (Porcine) (Heparin -) 5,000 unit SQ BID [facility] Last Admin: 11/05/19 09:11 Dose: Not Given Piperacillin Sod/Tazobactam (Sod 3.375 gm/ Dextrose) 50 mls @ 100 mls/hr IVPB Q8H-IV [facility]; Protocol Last Admin: 11/05/19 11:05 Dose: 100 mls/hr Insulin Aspart (Novolog Vial Sliding Scale -) 1 vial SQ ACHS [facility]; Protocol Last Admin: 11/05/19 11:44 Dose: 10 unit Lorazepam (Ativan -) 0.5 mg PO Q4H PRN PRN Reason: WITHDRAWAL SYMPTOMS Last Admin: 11/05/19 06:56 Dose: 0.5 mg Melatonin (Melatonin) 5 mg PO HS PRN PRN Reason: INSOMNIA Last Admin: 11/04/19 22:18 Dose: 5 mg Methadone HCl (Dolophine -) 5 mg PO ONCE ONE Stop: 11/06/19 06:01 Quetiapine Fumarate (Seroquel -) 25 mg PO BID [facility] Last Admin: 11/05/19 09:10 Dose: 25 mg - Objective Vital Signs: Vital Signs Temperature 97.8 F 11/05/19 11:10 Pulse Rate 88 11/05/19 11:10 Respiratory Rate 16 11/05/19 12:13 Blood Pressure 100/67 11/05/19 11:10 O2 Sat by Pulse Oximetry (%) 98 11/05/19 12:13 Constitutional: Yes: No Distress, Calm Cardiovascular: Yes: S1, S2 Respiratory: Yes: Regular, CTA Bilaterally Gastrointestinal: Yes: Normal Bowel Sounds, Soft Musculoskeletal: Yes: WNL Extremities: Yes: WNL 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: Yes: Alert, Oriented Psychiatric: Yes: Alert, Oriented Labs: CBC, BMP 11/03/19 06:50 11/03/19 06:50 Assessment/Plan Problem List - Problems (1) Alcohol dependence with uncomplicated withdrawal Code(s): F10.230 - ALCOHOL DEPENDENCE WITH WITHDRAWAL, UNCOMPLICATED (2) Cellulitis of hand Code(s): L03.119 - CELLULITIS OF UNSPECIFIED PART OF LIMB (3) Nicotine dependence Code(s): F17.200 - NICOTINE DEPENDENCE, UNSPECIFIED, UNCOMPLICATED Qualifiers: (4) Bipolar 1 disorder Code(s): F31.9 - BIPOLAR DISORDER, UNSPECIFIED (5) Chronic hepatitis C virus infection Code(s): B18.2 - CHRONIC VIRAL HEPATITIS C Qualifiers: (6) Crack cocaine use Code(s): F14.90 - COCAINE USE, UNSPECIFIED, UNCOMPLICATED (7) Insulin dependent diabetes mellitus Code(s): E11.9 - TYPE 2 DIABETES MELLITUS WITHOUT COMPLICATIONS; Z79.4 - [employer] (CURRENT) USE OF INSULIN 8 gm positive bactermia plan monitor repeat blood cx noted ct abx rest as per the team
[2019-11-05] MEDS: cloNIDine HCL 0.1 MG TABLET PO PRN ×2 (15:38→21:18)
[2019-11-05] MEDS: MELATONIN 5 MG TABLETS PO PRN (22:28)
[2019-11-06] MEDS ORDERED: DEXTROSE 5%-WATER - 50 ML IVPB ONE ×3 (01:19→17:08)
[2019-11-06] MEDS ORDERED: PIPERACILLIN/TAZOBACTAM 3.375 GM VIAL IVPB ONE ×3 (01:19→17:08)
[2019-11-06] MEDS: PIPERACILLIN/TAZOB 3.375 GM 3.375 GM in DEXTROSE 5%-WATER - 50 ML IVPB SCH ×3 (02:33→17:21)
[2019-11-06] MEDS ORDERED: METHADONE HCL 5 MG TABLET PO ONE (06:00)
[2019-11-06] MEDS: INSULIN SLIDING SCALE (NOVOLOG) 1 VIAL SQ SCH ×4 (06:06→22:24)
[2019-11-06] MEDS: GABAPENTIN 300 MG CAPSULE PO SCH ×3 (06:07→22:26)
[2019-11-06] MEDS: LORazepam 0.5 MG TABLET PO PRN ×5 (06:07→22:26)
[2019-11-06] MEDS: QUEtiapine FUMARATE 25 MG TABLET PO SCH ×2 (10:15→22:26)
[2019-11-06] MEDS: HEPARIN NA (PORCINE) 5,000 UNITS/ML 1ML VIAL SQ SCH ×2 (10:16→22:27)
--- NOTE | 2019-11-06 12:38 | PN ---
Progress Note, Physician History of Present Illness: stable no new issues - Current Medication List Current Medications: Active Medications Acetaminophen (Tylenol -) 650 mg PO Q6H PRN PRN Reason: FEVER Clonidine (Catapres -) 0.1 mg PO Q4H PRN PRN Reason: FOR WITHDRAWAL SYMPTOMS Last Admin: 11/05/19 21:18 Dose: 0.1 mg Gabapentin (Neurontin -) 300 mg PO TID [facility] Last Admin: 11/06/19 06:07 Dose: 300 mg Heparin Sodium (Porcine) (Heparin -) 5,000 unit SQ BID [facility] Last Admin: 11/06/19 10:16 Dose: Not Given Piperacillin Sod/Tazobactam (Sod 3.375 gm/ Dextrose) 50 mls @ 100 mls/hr IVPB Q8H-IV [facility]; Protocol Last Admin: 11/06/19 10:15 Dose: 100 mls/hr Insulin Aspart (Novolog Vial Sliding Scale -) 1 vial SQ ACHS [facility]; Protocol Last Admin: 11/06/19 11:54 Dose: 6 unit Lorazepam (Ativan -) 0.5 mg PO Q4H PRN PRN Reason: WITHDRAWAL SYMPTOMS Last Admin: 11/06/19 10:15 Dose: 0.5 mg Melatonin (Melatonin) 5 mg PO HS PRN PRN Reason: INSOMNIA Last Admin: 11/05/19 22:28 Dose: 5 mg Quetiapine Fumarate (Seroquel -) 25 mg PO BID [facility] Last Admin: 11/06/19 10:15 Dose: 25 mg - Objective Vital Signs: Vital Signs Temperature 98.3 F 11/06/19 10:00 Pulse Rate 83 11/06/19 10:00 Respiratory Rate 20 11/06/19 10:00 Blood Pressure 98/55 L 11/06/19 10:00 O2 Sat by Pulse Oximetry (%) 98 11/06/19 10:00 Constitutional: Yes: No Distress, Calm Cardiovascular: Yes: S1, S2 Respiratory: Yes: Regular, CTA Bilaterally Gastrointestinal: Yes: Soft Musculoskeletal: Yes: WNL Extremities: Yes: WNL 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: Yes: Alert, Oriented Psychiatric: Yes: Alert, Oriented Labs: CBC, BMP 11/03/19 06:50 11/03/19 06:50 Assessment/Plan Problem List - Problems (1) Alcohol dependence with uncomplicated withdrawal Code(s): F10.230 - ALCOHOL DEPENDENCE WITH WITHDRAWAL, UNCOMPLICATED (2) Cellulitis of hand Code(s): L03.119 - CELLULITIS OF UNSPECIFIED PART OF LIMB (3) Nicotine dependence Code(s): F17.200 - NICOTINE DEPENDENCE, UNSPECIFIED, UNCOMPLICATED Qualifiers: (4) Bipolar 1 disorder Code(s): F31.9 - BIPOLAR DISORDER, UNSPECIFIED (5) Chronic hepatitis C virus infection Code(s): B18.2 - CHRONIC VIRAL HEPATITIS C Qualifiers: (6) Crack cocaine use Code(s): F14.90 - COCAINE USE, UNSPECIFIED, UNCOMPLICATED (7) Insulin dependent diabetes mellitus Code(s): E11.9 - TYPE 2 DIABETES MELLITUS WITHOUT COMPLICATIONS; Z79.4 - [facility] (CURRENT) USE OF INSULIN 8 gm positive bactermia plan monitor repeat blood cx noted ct abx rest as per the team
[2019-11-06] MEDS: cloNIDine HCL 0.1 MG TABLET PO PRN ×2 (14:16→22:26)
--- NOTE | 2019-11-06 16:14 | PN ---
Progress Note, Physician History of Present Illness: doing well - Current Medication List Current Medications: Active Medications Acetaminophen (Tylenol -) 650 mg PO Q6H PRN PRN Reason: FEVER Clonidine (Catapres -) 0.1 mg PO Q4H PRN PRN Reason: FOR WITHDRAWAL SYMPTOMS Last Admin: 11/06/19 14:16 Dose: 0.1 mg Gabapentin (Neurontin -) 300 mg PO TID [facility] Last Admin: 11/06/19 14:11 Dose: 300 mg Heparin Sodium (Porcine) (Heparin -) 5,000 unit SQ BID [facility] Last Admin: 11/06/19 10:16 Dose: Not Given Piperacillin Sod/Tazobactam (Sod 3.375 gm/ Dextrose) 50 mls @ 100 mls/hr IVPB Q8H-IV [facility]; Protocol Last Admin: 11/06/19 10:15 Dose: 100 mls/hr Insulin Aspart (Novolog Vial Sliding Scale -) 1 vial SQ ACHS [facility]; Protocol Last Admin: 11/06/19 11:54 Dose: 6 unit Lorazepam (Ativan -) 0.5 mg PO Q4H PRN PRN Reason: WITHDRAWAL SYMPTOMS Last Admin: 11/06/19 14:11 Dose: 0.5 mg Melatonin (Melatonin) 5 mg PO HS PRN PRN Reason: INSOMNIA Last Admin: 11/05/19 22:28 Dose: 5 mg Quetiapine Fumarate (Seroquel -) 25 mg PO BID [facility] Last Admin: 11/06/19 10:15 Dose: 25 mg - Objective Vital Signs: Vital Signs Temperature 98.5 F 11/06/19 14:00 Pulse Rate 95 H 11/06/19 14:00 Respiratory Rate 11/06/19 14:00 Blood Pressure 109/68 11/06/19 14:00 O2 Sat by Pulse Oximetry (%) 98 11/06/19 10:00 Constitutional: Yes: No Distress HENT: Yes: WNL Neck: Yes: Supple Cardiovascular: Yes: Regular Rate and Rhythm Respiratory: Yes: CTA Bilaterally Gastrointestinal: Yes: Normal Bowel Sounds Extremities: Yes: WNL Edema: No 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: Yes: Alert, Oriented Labs: CBC, BMP 11/03/19 06:50 11/03/19 06:50 Problem List - Problems (1) Alcohol dependence with uncomplicated withdrawal Assessment/Plan: detox consult on methadone Code(s): F10.230 - ALCOHOL DEPENDENCE WITH WITHDRAWAL, UNCOMPLICATED (2) Cellulitis of hand Assessment/Plan: iv abx...switch to po tomorrow Code(s): L03.119 - CELLULITIS OF UNSPECIFIED PART OF LIMB (3) Nicotine dependence Code(s): F17.200 - NICOTINE DEPENDENCE, UNSPECIFIED, UNCOMPLICATED Qualifiers: (4) Bipolar 1 disorder Assessment/Plan: on meds psych consult...done Code(s): F31.9 - BIPOLAR DISORDER, UNSPECIFIED (5) Chronic hepatitis C virus infection Code(s): B18.2 - CHRONIC VIRAL HEPATITIS C Qualifiers: (6) Crack cocaine use Code(s): F14.90 - COCAINE USE, UNSPECIFIED, UNCOMPLICATED (7) Insulin dependent diabetes mellitus Code(s): E11.9 - TYPE 2 DIABETES MELLITUS WITHOUT COMPLICATIONS; Z79.4 - [facility] (CURRENT) USE OF INSULIN Assessment/Plan patient will go home /detox
[2019-11-06] MEDS: MELATONIN 5 MG TABLETS PO PRN (22:26)
[2019-11-07] MEDS ORDERED: PIPERACILLIN/TAZOBACTAM 3.375 GM VIAL IVPB ONE ×2 (01:09→08:53)
[2019-11-07] MEDS ORDERED: DEXTROSE 5%-WATER - 50 ML IVPB ONE ×2 (01:09→08:53)
[2019-11-07] MEDS: PIPERACILLIN/TAZOB 3.375 GM 3.375 GM in DEXTROSE 5%-WATER - 50 ML IVPB SCH ×2 (01:31→09:29)
[2019-11-07] MEDS: INSULIN SLIDING SCALE (NOVOLOG) 1 VIAL SQ SCH (06:38)
[2019-11-07] MEDS: LORazepam 0.5 MG TABLET PO PRN ×2 (06:39→10:32)
[2019-11-07] MEDS: GABAPENTIN 300 MG CAPSULE PO SCH (06:39)
[2019-11-07] MEDS ORDERED: PT OWN MED DRAWER 7, Y5N ONE (08:53)
[2019-11-07] MEDS: QUEtiapine FUMARATE 25 MG TABLET PO SCH (09:29)
[2019-11-07] MEDS: cloNIDine HCL 0.1 MG TABLET PO PRN (09:40)
[2019-11-07] MEDS: HEPARIN NA (PORCINE) 5,000 UNITS/ML 1ML VIAL SQ SCH (09:41)
--- NOTE | 2019-11-07 10:11 | DS ---
Physical Examination Vital Signs: Vital Signs Temperature 97.9 F 11/07/19 06:33 Pulse Rate 78 11/07/19 06:33 Respiratory Rate 16 11/07/19 06:33 Blood Pressure 90/57 L 11/07/19 06:33 O2 Sat by Pulse Oximetry (%) 99 11/06/19 22:00 Constitutional: Yes: No Distress HENT: Yes: Atraumatic Neck: Yes: Supple Cardiovascular: Yes: Regular Rate and Rhythm Respiratory: Yes: CTA Bilaterally Gastrointestinal: Yes: Normal Bowel Sounds Extremities: Yes: WNL 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: Yes: Alert, Oriented Labs: CBC, BMP 11/03/19 06:50 11/03/19 06:50 Discharge Summary Problems reviewed: Yes Reason For Visit: ALCOHOL DEPENDENCE Current Active Problems Cellulitis of hand (Acute) Opioid dependence (Chronic) - Instructions Disposition: HOME - Home Medications Comprehensive Discharge Medication List: Ambulatory Orders Insulin Glargine,Hum.rec.anlog [Lantus (10mL VIAL) -] 10 units SQ HS 07/24/16 Buspirone HCl [Buspar -] 15 mg PO BID #60 tablet 08/14/16 Clonidine HCl 0.1 mg PO BID 09/25/19 Lurasidone HCl [Latuda] 40 mg PO DAILY 09/25/19 Cephalexin Monohydrate [Keflex -] 250 mg PO Q6HPO #7 capsule 09/29/19 Gabapentin [Neurontin -] 300 mg PO TID #14 capsule 09/29/19 Amoxicillin/Potassium Clav [Augmentin 875-125 Tablet] 1 each PO BID #14 tablet 11/06/19 Quetiapine Fumarate [Seroquel -] 25 mg PO BID #14 tablet 11/06/19
[2019-11-07 10:37] VITALS: BP 114/72; PULSE 84; TEMP 98.2
== END 2019-11-07 11:45 | disposition home or self-care (01) | DRG 383 ==
LOC: JER 15:08 → JERBED 17:25 → J4S 11-01 20:22
PROVIDERS: ADMIT Internal Medicine; ATTEND Internal Medicine
PROC: HZ2ZZZZ Detoxification Services for Substance Abuse Treatment (ICD-10-PCS; principal; 2019-10-31)
DX: L03.114 Cellulitis of left upper limb (principal); L03.113 Cellulitis of right upper limb; B18.2 Chronic viral hepatitis C; F31.9 Bipolar disorder, unspecified; E11.9 Type 2 diabetes mellitus without complications; F17.210 Nicotine dependence, cigarettes, uncomplicated; I45.10 Unspecified right bundle-branch block; R00.0 Tachycardia, unspecified; F11.20 Opioid dependence, uncomplicated; F10.230 Alcohol dependence with withdrawal, uncomplicated; T51.91XA Toxic effect of unspecified alcohol, accidental (unintentional), initial encounter; T40.2X1A Poisoning by other opioids, accidental (unintentional), initial encounter; F14.90 Cocaine use, unspecified, uncomplicated; F41.9 Anxiety disorder, unspecified; B95.4 Other streptococcus as the cause of diseases classified elsewhere; Z79.4 Long term (current) use of insulin; Y92.89 Other specified places as the place of occurrence of the external cause
CPT/HCPCS: 36415; 71045-TC-FY; 80048; 80053; 80307; 82803; 82962; 84703; 85025; 85027; 87040; 87077; 93005; 93010; 93306-TC; 99284-25; J0735; J1644; J7030

== ENCOUNTER 2020-04-29 13:00 | Inpatient (IN) | payer OTHER ==
--- NOTE | 2020-04-29 14:38 | BHS.RME ---
Substance Use & Tx History - Substance Use History Alcohol Substance amount: 1 bottle of vodka Frequency of use: Daily Substance route: Oral Date of Last Use: 04/29/20 Cocaine-Crack Substance amount: 40$ of crack Frequency of use: Daily Date of Last Use: 04/29/20 Klonopin Substance amount: 2mgs to 4 mgs Frequency of use: Daily Substance route: Oral Date of Last Use: 04/26/20 - Last Treatment Date of last treatment: [facility] 10/2019 Where was last treatment: Detox Physical/Psych/Mental Status - Behavior Eye Contact: Normal - Cooperativeness Cooperativeness: Cooperative - Thinking Thought Processes: Logical Thought content: Future oriented - Physical Health Problems Is patient presently having any pain?: No Does patient presently have any injuries (include location): No Does patient currently have a fever: No CIWA Nausea/Vomitin Muscle Tremors: 3 Anxiety: 3 Agitation: 3 Paroxysmal Sweats: 1-Minimal Palms Moist Orientation: 0-Oriented Tacttile Disturbances: 1-Very Mild Itch/Numbness Auditory Disturbances: 0-None Visual Disturbances: 0-None Headache: 2-Mild CIWA-Ar Total Score: 15
--- NOTE | 2020-04-29 14:47 | HP ---
CIWA Score Nausea/Vomitin Muscle Tremors: 3 Anxiety: 3 Agitation: 3 Paroxysmal Sweats: 1-Minimal Palms Moist Orientation: 0-Oriented Tacttile Disturbances: 1-Very Mild Itch/Numbness Auditory Disturbances: 0-None Visual Disturbances: 0-None Headache: 2-Mild CIWA-Ar Total Score: 15 - Admission Criteria OASAS Guidelines: Admission for Medically Managed Detox: Requires at least one of the followin. CIWA greater than 12 2. Seizures within the past 24 hours 3. Delirium tremens within the past 24 hours 4. Hallucinations within the past 24 hours 5. Acute intervention needed for co occurring medical disorder 6. Acute intervention needed for co occurring psychiatric disorder 7. Severe withdrawal that cannot be handled at a lower level of care (continued vomiting, continued diarrhea, abnormal vital signs) requiring intravenous medication and/or fluids 8. Admitting History and Physical - Admission Chief Complaint: i need help to stop drining alcohol,crack,heroin abused,mmtp History of Present Illness: this 39 years old female with alcohol,crack dependence,heroin abused,klonopin abused,seeking help to stop History Source: Patient Limitations to Obtaining History: No Limitations - Past Medical History SHIP CEILER: Yes: Seizure Hepatobiliary: Yes: Hepatitis C ...LMP: 10/25/19 ...: No Infectious Disease: Yes: Other (HCV) Endocrine: Yes: Diabetes Mellitus - Past Surgical History Past Surgical History: Yes: None Additional Past Surgical History: d/c 03/2020 after 6 moths of - Smoking History Smoking history: Current every day smoker Have you smoked in the past 12 months: Yes Aproximately how many cigarettes per day: 1 - Alcohol/Substance Use Hx Alcohol Use: Yes (1 bottle of vodka daily) History of Substance Use: reports: Cocaine - Social History Usual Living Arrangement: Yes: With Parent Do you think of yourself as: Straight/Heterosexual ADL: Support Services Occupation: unemloyed History of Recent Travel: No 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 History: 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,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,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 Admission ROS [facility] - HPI Chief Complaint: i need help to stop drinking alcohol,crack,heroin abuse,mmtp Allergies/Adverse Reactions: Allergies Allergy/AdvReac Type Severity Reaction Status Date / Time soy Allergy Severe Difficulty Verified 04/29/20 15:27 Breathing Sulfa (Sulfonamide Allergy Severe Verified 04/29/20 15:27 Antibiotics) History of Present Illness: this 39 years old female with alcohol ,cocaine dependence,heroin abused,mmtp Exam Limitations: No Limitations - Ebola screening Have you traveled outside of the country in the last 21 days: No Have you had contact with anyone from an Ebola affected area: No Have you been sick,other than usual withdrawal symptoms: No Do you have a fever: No - Review of Systems Constitutional: Loss of Appetite, Malaise, Night Sweats, Changes in sleep, Weakness EENT: reports: Nose Congestion Respiratory: reports: No Symptoms reported Cardiac: reports: No Symptoms Reported GI: reports: Nausea, Poor Appetite, Abdominal cramping : reports: No Symptoms Reported Musculoskeletal: reports: Back Pain, Muscle Pain Integumentary: reports: Dryness Neuro: reports: Tremors Endocrine: reports: No Symptoms Reported Hematology: reports: No Symptoms Reported Psychiatric: reports: No Sypmtoms Reported, Judgement Intact, Mood/Affect Appropiate, Anxious, Depressed Other Systems: Reviewed and Negative Patient History - Patient Medical History Hx Anemia: No Hx Asthma: No Hx Chronic Obstructive Pulmonary Disease (COPD): No Hx Cancer: No Hx Cardiac Disorders: No Hx Congestive Heart Failure: No Hx Hypertension: No Hx Hypercholesterolemia: No Hx Pacemaker: No HX Cerebrovascular Accident: No Hx Seizures: No Hx Dementia: No Hx Diabetes: Yes (non compliance) Hx Gastrointestinal Disorders: No Hx Liver Disease: Yes (Hep C untreated ) Hx Genitourinary Disorders: No Hx Sexually Transmitted Disorders: No Hx Renal Disease (ESRD): No Hx Thyroid Disease: No Hx Human Immunodeficiency Virus (HIV): No Hx Hepatitis C: Yes Hx Depression: No Hx Suicide Attempt: No Hx Bipolar Disorder: Yes (anxiety ) Hx Schizophrenia: Yes Other Medical History: no sucidal,no homicidal - Patient Surgical History Past Surgical History: Yes Hx Section: Yes (x2 17,11) Other Surgical History: d/c loss fetus last month ,fetus 6 months old Anesthesia Reaction: No - PPD History Date: 09/27/19 Results: quanttb gold ne - Reproductive History Patient is a Female of Child Bearing Age (11 -55 yrs old): Yes Last Menstrual Period: 10/25/19 Patient : No - Smoking Cessation Smoking history: Current every day smoker Have you smoked in the past 12 months: Yes Aproximately how many cigarettes per day: 1 Cigars Per Day: 0 Hx Chewing Tobacco Use: No Initiated information on smoking cessation: Yes 'Breaking Loose' booklet given: 04/29/20 - Substance & Tx. History Hx Alcohol Use: Yes Hx Substance Use: Yes Substance Use Type: Alcohol, Cocaine Hx Substance Use Treatment: Yes ([facility] 01/2020) - Substances abused Alcohol Substance route: Oral Frequency: Daily Amount used: 1 bottle of vodka Age of first use: 12 Date of last use: 04/29/20 Crack Substance route: Smoking Frequency: Daily Amount used: 40$ Age of first use: 12 Date of last use: 04/29/20 Benzodiazepine (Klonopin) Substance route: Oral Amount used: 2mg to 4 mgs Age of first use: 12 Date of last use: 04/26/20 Heroin Substance route: Injection Amount used: 4 bags Age of first use: 18 Date of last use: 04/26/20 Admission Physical Exam [facility] - Vital Signs Vital Signs: t96.6,p101,bp107/70,r20,pulse ox 100 - Physical General Appearance: Yes: Moderate Distress, Tremorous, Irritable, Sweating, Anxious HEENTM: Yes: Normal ENT Inspection, [place], Pharynx Normal Respiratory: Yes: Lungs Clear, Normal Breath Sounds, No Respiratory Distress Neck: Yes: Within Normal Limits, Supple, Trachea in good position Breast: Yes: Breast Exam Deferred Cardiology: Yes: Within Normal Limits, Regular Rhythm, Regular Rate, S1, S2 Abdominal: Yes: Within Normal Limits, Normal Bowel Sounds, Non Tender, Flat, Soft Genitourinary: Yes: Within Normal Limits Back: Yes: Muscle Spasm Extremities: Yes: Tremors 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: 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: 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 NML intact, Fully Oriented, Alert, Motor Strength 5/5 Integumentary: Yes: Dry Lymphatic: Yes: Within Normal Limits - Diagnostic (1) Alcohol intoxication Current Visit: Yes Status: Acute (2) Alcohol dependence with uncomplicated withdrawal Current Visit: No Status: Acute (3) Cocaine dependence Current Visit: Yes Status: Acute (4) Heroin abuse Current Visit: Yes Status: Acute (5) Methadone maintenance therapy patient Current Visit: Yes Status: Acute (6) Hepatitis C Current Visit: Yes Status: Acute (7) Insomnia secondary to depression with anxiety Current Visit: Yes Status: Acute (8) IVDU (intravenous drug user) Current Visit: Yes Status: Acute Cleared for Admission [facility] - Detox or Rehab [facility] Level of Care: Medically Managed Detox Regimen/Protocol: Ativan Breathalyzer - Breathalyzer Breathalyzer: 0.233 Urine Drug Screen - Test Device Lot number: [id number] Expiration date: 05/11/21 - Control Is test valid?: Yes - Results Drug screen NEGATIVE: No Urine drug screen results: STEW-Cocaine, MTD-Methadone, BZO-Benzodiazepines, BUP- Suboxone Inpatient Rehab Admission - Rehab Decision to Admit Inpatient rehab admission?: No
[2020-04-29] MEDS ORDERED: MENTHOL/PHENOL 1 EACH UD MM PRN (15:10)
[2020-04-29] MEDS ORDERED: MAGNESIUM HYDROX 2400MG/30ML ORAL SUSPENSION 30 ML CUP PO PRN (15:10)
[2020-04-29] MEDS ORDERED: ONDANSETRON *ODT* 4 MG TABLET SL ONE ×2 (15:10→22:23)
[2020-04-29] MEDS ORDERED: BISMUTH SUBSALICYLATE 524 MG/30 ML UD PO PRN (15:10)
[2020-04-29] MEDS ORDERED: MAGNESIUM CITRATE 300 ML BOTTLE PO PRN (15:10)
[2020-04-29] MEDS ORDERED: NICOTINE POLACRILEX 2 MG GUM BUC PRN (15:10)
[2020-04-29] MEDS ORDERED: ACETAMINOPHEN 325 MG TABLET (FP) PO PRN ×2 (15:10)
[2020-04-29] MEDS ORDERED: IBUPROFEN 400 MG TABLET (FP) PO PRN (15:10)
[2020-04-29] MEDS ORDERED: MAG HYDROX/AL HYDROX/SIMETH 30 ML UNIT-DOSE CUP PO PRN (15:10)
[2020-04-29 15:42] VITALS: BMI 24.0
[2020-04-29] MEDS: hydrOXYzine PAMOATE 25 MG CAPSULE (FP) PO SCH ×2 (17:02→22:01)
[2020-04-29] MEDS: INSULIN SLIDING SCALE (NOVOLOG) 1 VIAL SQ SCH ×2 (17:02→21:13)
[2020-04-29] MEDS: LORazepam 1 MG TABLET PO PRN ×2 (17:02→20:46)
[2020-04-29] MEDS: METHOCARBAMOL 500 MG TABLET PO PRN (19:18)
[2020-04-29] MEDS: THIAMINE HCL 100 MG TABLET (FP) PO SCH (22:01)
[2020-04-29] MEDS: LORazepam 2 MG TABLET PO SCH (22:01)
[2020-04-29] MEDS: MELATONIN 5 MG TABLETS PO SCH (22:01)
--- NOTE | 2020-04-29 22:25 | PN ---
[facility] Progress Note Note: Patient complained of nausea. Denies vomiting at this time. Vital Signs Temperature 97.5 F L 04/29/20 20:40 Pulse Rate 115 H 04/29/20 20:40 Respiratory Rate 18 04/29/20 20:40 Blood Pressure 107/74 04/29/20 20:40 O2 Sat by Pulse Oximetry (%) 97 04/29/20 20:40 Laboratory Last Values POC Glucometer 139 UNITS (80-120) 04/29/20 21:12 Action: Ondansetron (Zofran Odt) 4mg sublingual ordered
[2020-04-30] MEDS: LORazepam 1 MG TABLET PO PRN ×2 (00:48→12:16)
[2020-04-30] MEDS ORDERED: ONDANSETRON *ODT* 4 MG TABLET SL ONE (01:56)
--- NOTE | 2020-04-30 05:16 | PN ---
S Progress Note Note: Patient complains of feeling nauseous. Denies vomiting Vital Signs Temperature 97.5 F L 04/29/20 20:40 Pulse Rate 115 H 04/29/20 20:40 Respiratory Rate 18 04/29/20 20:40 Blood Pressure 107/74 04/29/20 20:40 O2 Sat by Pulse Oximetry (%) 97 04/29/20 20:40 Action: Ondansetron (Zofran Odt) 4mg sublingual ordered
[2020-04-30] MEDS: hydrOXYzine PAMOATE 25 MG CAPSULE (FP) PO SCH ×5 (05:38→22:04)
[2020-04-30] MEDS: LORazepam 2 MG TABLET PO SCH ×4 (05:38→22:04)
[2020-04-30] MEDS: INSULIN SLIDING SCALE (NOVOLOG) 1 VIAL SQ SCH ×4 (06:21→21:13)
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
[2020-04-30] MEDS: PRENATAL VITAMINS W/ FOLIC ACID TABLET (FP) PO SCH (10:10)
[2020-04-30] MEDS: NICOTINE 7 MG/24 HOURS TOPICAL PATCH TD SCH (10:10)
--- NOTE | 2020-04-30 13:57 | PN ---
S CIWA - CIWA Score Nausea/Vomitin Muscle Tremors: 3 Anxiety: 2 Agitation: 2 Paroxysmal Sweats: No Perspiration Orientation: 0-Oriented Tacttile Disturbances: 1-Very Mild Itch/Numbness Auditory Disturbances: 0-None Visual Disturbances: 0-None Headache: 2-Mild CIWA-Ar Total Score: 12 [facility] Progress Note (SOAP) Subjective: alert,irritable,anxious,interrupted sleep,tremor,pain in the body Objective: 04/30/20 13:53 Vital Signs Temperature 97.6 F 04/30/20 12:53 Pulse Rate 106 H 04/30/20 12:53 Respiratory Rate 17 04/30/20 12:53 Blood Pressure 140/95 04/30/20 12:53 O2 Sat by Pulse Oximetry (%) 99 04/30/20 12:53 Laboratory Last Values POC Glucometer 131 UNITS (80-120) 04/30/20 12:01 Assessment: 04/30/20 13:54 withdrawal symptom Plan: continue detox ativan regimen,encourage oral fluid,close monitoring,patient is not on methadone maintenance any more
[2020-04-30 14:26] LABS: HEMATOCRIT 29.6 % (32.4-45.2); HEMOGLOBIN 9.6 GM/dL (10.7-15.3); MCH 30.2 pg (25.7-33.7); MCHC 32.3 g/dl (32.0-36.0); MEAN CELL VOLUME 93.4 fl (80-96); MEAN PLT VOLUME 10.7 fl (7.5-11.1); PLATELET COUNT 110 K/MM3 (134-434); RBC 3.17 M/mm3 (3.60-5.2); RDW 20.9 % (11.6-15.6); WHITE BLOOD COUNT 4.3 K/mm3 (4.0-10.0)
[2020-04-30 14:53] LABS: ALBUMIN 3.8 g/dl (3.4-5.0); BILIRUBIN,TOTAL 0.5 mg/dL (0.2-1); CALCIUM 8.3 mg/dL (8.5-10.1); POTASSIUM 3.8 mmol/L (3.5-5.1); TOT PROT 7.6 g/dl (6.4-8.2)
[2020-04-30] MEDS ORDERED: QUEtiapine FUMARATE 50 MG TABLET PO SCH (22:00)
[2020-04-30] MEDS: THIAMINE HCL 100 MG TABLET (FP) PO SCH (22:04)
[2020-04-30] MEDS: MELATONIN 5 MG TABLETS PO SCH (22:04)
[2020-05-01] MEDS: hydrOXYzine PAMOATE 25 MG CAPSULE (FP) PO SCH (05:54)
[2020-05-01] MEDS: LORazepam 1 MG TABLET PO SCH ×2 (05:54→10:48)
[2020-05-01] MEDS: INSULIN SLIDING SCALE (NOVOLOG) 1 VIAL SQ SCH ×2 (06:33→11:56)
[2020-05-01] MEDS ORDERED: hydrOXYzine PAMOATE 25 MG CAPSULE (FP) PO PRN (08:33)
--- NOTE | 2020-05-01 10:34 | PN ---
[facility] CIWA - CIWA Score Nausea/Vomitin-No Nausea/No Vomiting Muscle Tremors: 2 Anxiety: 3 Agitation: 3 Paroxysmal Sweats: 3 Orientation: 0-Oriented Tacttile Disturbances: 0-None Auditory Disturbances: 0-None Visual Disturbances: 0-None Headache: 0-None Present CIWA-Ar Total Score: 11 S Progress Note (SOAP) Subjective: irritable sweats agitation restless body aches Objective: 05/01/20 10:33 Vital Signs Temperature 97.3 F L 05/01/20 08:58 Pulse Rate 114 H 05/01/20 08:58 Respiratory Rate 17 05/01/20 08:58 Blood Pressure 121/88 05/01/20 08:58 O2 Sat by Pulse Oximetry (%) 95 05/01/20 08:58 Laboratory Tests 04/29/20 04/29/20 04/30/20 15:58 21:12 05:36 WBC RBC Hgb Hct MCV MCH MCHC RDW Plt Count MPV Sodium Potassium Chloride Carbon Dioxide Anion Gap BUN Creatinine Est GFR (CKD-EPI)AfAm Est GFR (CKD-EPI)NonAf POC Glucometer 219 139 143 Random Glucose Calcium Total Bilirubin AST ALT Alkaline Phosphatase Total Protein Albumin Syphilis Serology HIV Ag/Ab Combo Qual 04/30/20 04/30/20 04/30/20 09:15 09:15 09:15 WBC 4.3 RBC 3.17 L Hgb 9.6 L Hct 29.6 L D MCV 93.4 MCH 30.2 MCHC 32.3 RDW 20.9 H Plt Count 110 L D MPV 10.7 D Sodium Potassium Chloride Carbon Dioxide Anion Gap BUN Creatinine Est GFR (CKD-EPI)AfAm Est GFR (CKD-EPI)NonAf POC Glucometer Random Glucose Calcium Total Bilirubin AST ALT Alkaline Phosphatase Total Protein Albumin Syphilis Serology Non-reactive HIV Ag/Ab Combo Qual Negative 04/30/20 04/30/20 04/30/20 09:15 12:01 16:31 WBC RBC Hgb Hct MCV MCH MCHC RDW Plt Count MPV Sodium 141 Potassium 3.8 Chloride 103 Carbon Dioxide 26 Anion Gap 11 BUN 13.0 Creatinine 1.0 Est GFR (CKD-EPI)AfAm 82.76 Est GFR (CKD-EPI)NonAf 71.41 POC Glucometer 131 168 Random Glucose 163 H Calcium 8.3 L Total Bilirubin 0.5 AST 22 ALT 27 Alkaline Phosphatase 129 H Total Protein 7.6 Albumin 3.8 Syphilis Serology HIV Ag/Ab Combo Qual 04/30/20 05/01/20 21:09 05:53 WBC RBC Hgb Hct MCV MCH MCHC RDW Plt Count MPV Sodium Potassium Chloride Carbon Dioxide Anion Gap BUN Creatinine Est GFR (CKD-EPI)AfAm Est GFR (CKD-EPI)NonAf POC Glucometer 116 118 Random Glucose Calcium Total Bilirubin AST ALT Alkaline Phosphatase Total Protein Albumin Syphilis Serology HIV Ag/Ab Combo Qual labs noted low H:H; will replenish with iron supplement aaox3 ambulating no acute distress Assessment: 05/01/20 10:33 withdrawals Plan: continue detox increase fluids iron supplement ordered
[2020-05-01] MEDS: PRENATAL VITAMINS W/ FOLIC ACID TABLET (FP) PO SCH (10:48)
[2020-05-01] MEDS: NICOTINE 7 MG/24 HOURS TOPICAL PATCH TD SCH (10:48)
[2020-05-01] MEDS: METHOCARBAMOL 500 MG TABLET PO PRN (11:01)
[2020-05-01] MEDS ORDERED: FERROUS SO4 325 MG TABLET (FP) PO SCH (12:00)
[2020-05-01 14:21] VITALS: BP 133/89; PULSE 104; TEMP 96.9
[2020-05-01] MEDS: LORazepam 1 MG TABLET PO PRN (14:36)
--- NOTE | 2020-05-01 15:46 | PN ---
[facility] Progress Note Note: pt states she wanted to detox off the heroin however, pt was explained she was negative on urine toxicology screen for opioids. Pt states she had belonged to a methadone program few months ago but walked off an never returned. Pt was explained that she may be able to get the help she needs with counseling and getting her back to a methadone program. Pt refused to get the help and wants to sign out. Pt was asked to stay and prevent any relapse, seizure, DT, OD and or loss. Pt insisted she wanted to go home and signed out AMA.
--- NOTE | 2020-05-01 15:49 | DS ---
[facility] Detox Discharge Summary Admission Date: 04/29/20 - History Present History: Alcohol Dependence, Cocaine Dependence - Physical Exam Results Vital Signs: Vital Signs Temperature 96.9 F L 05/01/20 12:47 Pulse Rate 104 H 05/01/20 12:47 Respiratory Rate 18 05/01/20 12:47 Blood Pressure 133/89 05/01/20 12:47 O2 Sat by Pulse Oximetry (%) 99 05/01/20 12:47 Pertinent Admission Physical Exam Findings: Vital Signs Temperature 96.9 F L 05/01/20 12:47 Pulse Rate 104 H 05/01/20 12:47 Respiratory Rate 18 05/01/20 12:47 Blood Pressure 133/89 05/01/20 12:47 O2 Sat by Pulse Oximetry (%) 99 05/01/20 12:47 Laboratory Tests 04/29/20 04/29/20 04/30/20 15:58 21:12 05:36 WBC RBC Hgb Hct MCV MCH MCHC RDW Plt Count MPV Sodium Potassium Chloride Carbon Dioxide Anion Gap BUN Creatinine Est GFR (CKD-EPI)AfAm Est GFR (CKD-EPI)NonAf POC Glucometer 219 139 143 Random Glucose Calcium Total Bilirubin AST ALT Alkaline Phosphatase Total Protein Albumin Syphilis Serology HIV Ag/Ab Combo Qual 04/30/20 04/30/20 04/30/20 09:15 09:15 09:15 WBC 4.3 RBC 3.17 L Hgb 9.6 L Hct 29.6 L D MCV 93.4 MCH 30.2 MCHC 32.3 RDW 20.9 H Plt Count 110 L D MPV 10.7 D Sodium Potassium Chloride Carbon Dioxide Anion Gap BUN Creatinine Est GFR (CKD-EPI)AfAm Est GFR (CKD-EPI)NonAf POC Glucometer Random Glucose Calcium Total Bilirubin AST ALT Alkaline Phosphatase Total Protein Albumin Syphilis Serology Non-reactive HIV Ag/Ab Combo Qual Negative 04/30/20 04/30/20 04/30/20 09:15 12:01 16:31 WBC RBC Hgb Hct MCV MCH MCHC RDW Plt Count MPV Sodium 141 Potassium 3.8 Chloride 103 Carbon Dioxide 26 Anion Gap 11 BUN 13.0 Creatinine 1.0 Est GFR (CKD-EPI)AfAm 82.76 Est GFR (CKD-EPI)NonAf 71.41 POC Glucometer 131 168 Random Glucose 163 H Calcium 8.3 L Total Bilirubin 0.5 AST 22 ALT 27 Alkaline Phosphatase 129 H Total Protein 7.6 Albumin 3.8 Syphilis Serology HIV Ag/Ab Combo Qual 04/30/20 05/01/20 05/01/20 21:09 05:53 11:47 WBC RBC Hgb Hct MCV MCH MCHC RDW Plt Count MPV Sodium Potassium Chloride Carbon Dioxide Anion Gap BUN Creatinine Est GFR (CKD-EPI)AfAm Est GFR (CKD-EPI)NonAf POC Glucometer 116 118 169 Random Glucose Calcium Total Bilirubin AST ALT Alkaline Phosphatase Total Protein Albumin Syphilis Serology HIV Ag/Ab Combo Qual aaox3 ambulating no acute distress lungs CTA - Treatment Hospital Course: Rehab Referral Accepted - Diagnosis (1) Cocaine dependence Current Visit: Yes Status: Chronic Qualifiers: Substance use status: uncomplicated Qualified Code(s): F14.20 - Cocaine dependence, uncomplicated (2) Hepatitis C Current Visit: Yes Status: Acute Qualifiers: Viral hepatitis chronicity: chronic Hepatic coma status: without hepatic coma Qualified Code(s): B18.2 - Chronic viral hepatitis C (3) Heroin abuse Current Visit: No Status: Acute (4) IVDU (intravenous drug user) Current Visit: No Status: Chronic (5) Insomnia secondary to depression with anxiety Current Visit: Yes Status: Acute (6) Sedative hypnotic or anxiolytic dependence Current Visit: Yes Status: Chronic (7) Substance induced mood disorder Current Visit: Yes Status: Acute (8) Substance-induced sleep disorder Current Visit: Yes Status: Acute (9) Bipolar disorder Current Visit: Yes Status: Chronic (10) PTSD (post-traumatic stress disorder) Current Visit: Yes Status: Ruled-out (11) Alcohol dependence with uncomplicated withdrawal Current Visit: Yes Status: Chronic (12) Anxiety Current Visit: No Status: Chronic (13) Bipolar 1 disorder Current Visit: No Status: Chronic (14) Crack cocaine use Current Visit: No Status: Chronic (15) Insulin dependent diabetes mellitus Current Visit: No Status: Chronic (16) Nicotine dependence Current Visit: Yes Status: Chronic Qualifiers: Nicotine product type: cigarettes Substance use status: uncomplicated Qualified Code(s): F17.210 - Nicotine dependence, cigarettes, uncomplicated - AMA Did Patient Leave Against Medical Advice: Yes
[2020-05-01 17:22] LABS: EPI CELLS >36 /uL (0-25.1); HYALINE CASTS 1 /uL (0-3.1); URINE APPEARANCE CLOUDY; URINE BACTERIA 2112 /uL (0-1359); URINE BILIRUBIN NEGATIVE (NEGATIVE); URINE COLOR YELLOW; URINE GLUCOSE (UA) NEGATIVE (NEGATIVE); URINE KETONE NEGATIVE (NEGATIVE); URINE LEUK ESTERASE TRACE (NEGATIVE); URINE NITRITE NEGATIVE (NEGATIVE); URINE PROTEIN NEGATIVE (NEGATIVE); URINE RBC 7 /uL (0-23.9); URINE UROBILINOGEN 0.2 mg/dL (0.2-1.0); URINE WBC 27 /uL (0-25.8)
[2020-05-02] MEDS ORDERED: LORazepam 0.5 MG TABLET PO PRN
[2020-05-02] MEDS ORDERED: LORazepam 0.5 MG TABLET PO SCH (05:00)
[2020-05-03] MEDS ORDERED: LORazepam 0.5 MG TABLET PO ONE (05:00)
== END 2020-05-01 01:37 | disposition left against medical advice (07) | DRG 770 ==
LOC: YASAS 13:00 → Y6N 15:34
PROVIDERS: ADMIT Allergy & Immunology; ATTEND Allergy & Immunology
PROC: HZ2ZZZZ Detoxification Services for Substance Abuse Treatment (ICD-10-PCS; principal; 2020-04-29)
DX: F10.230 Alcohol dependence with withdrawal, uncomplicated (principal); F11.20 Opioid dependence, uncomplicated; F14.20 Cocaine dependence, uncomplicated; F13.20 Sedative, hypnotic or anxiolytic dependence, uncomplicated; F17.210 Nicotine dependence, cigarettes, uncomplicated; F19.282 Other psychoactive substance dependence with psychoactive substance-induced sleep disorder; F19.24 Other psychoactive substance dependence with psychoactive substance-induced mood disorder; F31.9 Bipolar disorder, unspecified; F41.9 Anxiety disorder, unspecified; F51.05 Insomnia due to other mental disorder; E10.9 Type 1 diabetes mellitus without complications; Z79.4 Long term (current) use of insulin; D64.9 Anemia, unspecified; Z86.69 Personal history of other diseases of the nervous system and sense organs; Z91.410 Personal history of adult physical and sexual abuse; Z88.2 Allergy status to sulfonamides; Z91.018 Allergy to other foods
CPT/HCPCS: 36415; 80053; 81003; 82962; 85027; 86780; 87389; Q0162; U0003